=== PATIENT | female | born 1945 | race Asian ===

== ENCOUNTER 2020-12-04 13:48 | Outpatient (REF) | payer MEDICARE, SELFPAY ==
--- NOTE | ~2020-12-04 | MM_ITS ---
EXAMINATION: BONE DENSITOMETRY CLINICAL INDICATION: Screening for osteoporosis. COMPARISON: Previous BD dated 02/08/2015 and baseline BD dated 07/23/2005. TECHNIQUE: Using a [employer] DXA System (software version: 13.1) manufactured by [employer], dual-energy x-ray absorptiometry was performed of the lumbar spine and left hip. The images are of good technical quality. Summary results are attached. FINDINGS: AP SPINE L1-L4: Current: BMD 1.247 g/cm2, Z-score 2.6, T-score 0.6, normal, 0.7% increase from previous, 1.0% decrease from baseline (<5% change is not significant). Prior: BMD 1.238 g/cm2. Baseline: BMD 1.260 g/cm2. LEFT FEMUR, NECK: Current: BMD 0.941 g/cm2, Z-score 1.4, T-score -0.7, normal. Prior: BMD 0.932 g/cm2. Baseline: BMD 0.880 g/cm2. LEFT FEMUR, TOTAL: Current: BMD 0.971 g/cm2, Z-score 1.6, T-score -0.3, normal, 0.1% decrease from previous, 1.7% decrease from baseline (<5% change is not significant). Prior: BMD 0.972 g/cm2. Baseline: BMD 0.988 g/cm2. IDENTIFIED RISK FACTORS: Menopause. HISTORY OF FRACTURE: None listed. MEDICATIONS: Calcium supplements or multivitamin, vitamin D. MM/XR DEXA axial skeleton IMPRESSION: 1. DIAGNOSIS: Normal bone density based on the lowest T-score value of -0.7 in the femoral neck applying World Health Organization criteria. 2. 10-YEAR FRACTURE RISK PREDICTION, FRAX: According to the guidelines, FRAX calculation should only be performed on patients in the osteopenia bone density category. Therefore, FRAX was not performed on this patient. 3. Treatment Recommendations: NOF guidelines recommend consideration for treatment in postmenopausal women and men age 50 and older presenting with the following: -A hip or vertebral (clinical or morphometric) fracture. -T-score less than or equal to -2.5 at the femoral neck or spine after appropriate evaluation to exclude secondary causes. -Low bone mass at the hip or spine and a 10-year fracture probability by FRAX of greater than or equal to 3% for hip fracture or greater than or equal to 20% for major osteoporotic fracture based on the [place] adapted WHO algorithm. 4. Other Recommendations: All treatment decisions require clinical judgment and consideration of individual patient factors, including patient preferences, comorbidities, previous drug use, risk factors not captured in the FRAX model (e.g. frailty, falls, vitamin D deficiency, increased bone turnover, interval significant decline in bone density) and possible under or overestimation of fracture risk by FRAX. FUTURE SCAN RECOMMENDATION: People with diagnosed cases of osteoporosis or at high risk for fracture should have regular bone mineral density tests. For patients eligible for Medicare, routine testing is allowed once every 2 years. The testing frequency can be increased to one year for patients who have rapidly progressing disease, those who are receiving or discontinuing medical therapy to restore bone mass, or have additional risk factors.
--- NOTE | ~2020-12-04 | MM_ITS ---
EXAMINATION: MM SCREENING DIGITAL BREAST TOMOSYNTHESIS, BILATERAL CLINICAL INFORMATION: Screening. Asymptomatic. The lifetime risk of breast cancer based on the Tyrer-Cuzick Model is 2.9%. COMPARISON: Mammography: October 26, 2018 and studies dating back to April 03, 2010 TECHNIQUE: Digital breast tomosynthesis is performed in both the craniocaudal and mediolateral oblique views along with computer-aided detection (CAD). Synthesized 2D images are generated from the tomosynthesis. FINDINGS: The breasts are extremely dense, which lowers the sensitivity of mammography (ACR BI-RADS breast composition Category d). There are no significant masses, abnormal calcifications, or other abnormalities. MM/MM tomosynthesis screening BI IMPRESSION: There are no significant changes from prior study. ASSESSMENT: BI-RADS 1: Negative RECOMMENDATION: Routine annual mammography screening. This patient's information was entered into a reminder system with a target due date for their next mammogram.
== END 2020-12-04 13:49 | disposition home or self-care (01) ==
LOC: HO.MAMMO 13:48
PROVIDERS: Absent Provider Obstetrics & Gynecology; Visit Provider Internal Medicine
DX: Z13.820 Encounter for screening for osteoporosis (principal); Z78.0 Asymptomatic menopausal state; Z12.31 Encounter for screening mammogram for malignant neoplasm of breast
CPT/HCPCS: 77063; 77067; 77080

== ENCOUNTER 2022-05-26 14:22 | Outpatient (REF) | payer MEDICARE, SELFPAY ==
--- NOTE | ~2022-05-26 | MM_ITS ---
EXAMINATION: MM DIAGNOSTIC DIGITAL BREAST TOMOSYNTHESIS, BILATERAL US DIAGNOSTIC ULTRASOUND BREAST, RIGHT CLINICAL INFORMATION: Pea-sized superficial area noted by patient lateral right breast. Due for yearly. The lifetime risk of breast cancer based on the Tyrer-Cuzick Model is 3%. COMPARISON: Mammography: 12/04/2020, 10/26/2018, 09/06/2017 TECHNIQUE: Digital breast tomosynthesis is performed in both the craniocaudal and mediolateral oblique views along with computer-aided detection (CAD). Synthesized 2D images are generated from the tomosynthesis. Additional exaggerated right CC view is obtained. Ultrasound right breast is targeted to the area of clinical concern using grayscale imaging and color Doppler without and with harmonics. Patient is able to point to area of concern at time of imaging. FINDINGS: There are scattered areas of fibroglandular density (ACR BI-RADS breast composition Category b). Breast tissue composition borders on heterogeneously dense. There are no significant masses, abnormal calcifications, or other abnormalities. There is no mammographic correlate for the area of symptoms noted by patient. No skin thickening or coarsening of the Zeke's ligaments. No identifiable capsule around a lipoma. The axilla are unremarkable. Ultrasound demonstrates no cystic or solid mass or architectural abnormality. There is incidental small oval fat lobule near site of clinical concern 8 x 4 mm. No skin thickening or edema tracking in soft tissue planes. No abnormal color flow. Results are discussed with the patient at time of visit. MM/MM tomosynthesis diagnostic BI IMPRESSION: Right: -No mammographic correlate for clinical palpable concern. -Small incidental fat lobule near area of palpable concern on ultrasound. No suspicious finding. Left: -No mammographic evidence of malignancy. ASSESSMENT: BI-RADS 2: Benign RECOMMENDATION: 1. If there is still clinically palpable concern, further evaluation may be considered with surgical consult. Decision to proceed with biopsy should be based on clinical grounds and degree of clinical concern. 2. Otherwise, routine annual screening mammography. This patient's information was entered into a reminder system with a target due date for their next mammogram.
== END 2022-05-26 14:23 | disposition home or self-care (01) ==
LOC: HO.MAMMO 14:22
PROVIDERS: PCP Internal Medicine; Visit Provider Internal Medicine
DX: N63.15 Unspecified lump in the right breast, overlapping quadrants (principal)
CPT/HCPCS: 76642; 77062; 77066

== ENCOUNTER 2023-06-08 12:51 | Outpatient (REF) | payer MEDICARE, SELFPAY ==
--- NOTE | ~2023-06-08 | MM_ITS ---
EXAMINATION: MM DIAGNOSTIC DIGITAL BREAST TOMOSYNTHESIS, BILATERAL US BREAST LIMITED, RIGHT MAMMOGRAPHY: CLINICAL INFORMATION: Palpable focus of concern noted upper outer quadrant of right breast. 78-year-old female. COMPARISON: Mammography: 05/26/2022, 12/04/2020, 10/26/2018, 09/06/2017 TECHNIQUE: Digital breast tomosynthesis is performed in both the craniocaudal and mediolateral oblique views along with computer-aided detection (CAD). Synthesized 2D images are generated from the tomosynthesis. FINDINGS: The breasts are heterogeneously dense, which may obscure small masses (ACR BI-RADS breast composition Category c). Palpable focus of abnormality right breast 9:00 axis, 10 cm from the nipple, demonstrates no abnormal mass, architectural distortion, or abnormal calcifications near are subjacent to the marker. There are no suspicious masses, suspicious grouped calcifications, or areas of architectural distortion in either breast. The parenchymal pattern is stable from prior exams. ULTRASOUND: CLINICAL INFORMATION: Palpable focus of concern noted upper outer quadrant of right breast. 78-year-old female. COMPARISON: 05/26/2022. TECHNIQUE: Targeted sonographic evaluation was performed using a high frequency linear transducer. Attention was given to the 9:00 axis of the right breast, covering the area of concern. Selected archived documentation. FINDINGS: RIGHT BREAST: There is a mixture of fatty and fibroglandular tissue. No suspicious mass is seen. There is no pathologic acoustic shadowing. Once again, there is a simple lipoma/lipomatous nodule measuring 0.9 x 0.5 x 1.1 cm, unchanged from 05/26/2022. Once again this appears to account for the palpable focus of concern. MM/MM tomosynthesis diagnostic BI IMPRESSION: There are no significant changes from prior study. No findings suspicious for malignancy in either breast. Palpable focus of concern appears to be related to the same circumscribed lipomatous nodule/lipoma previously described measuring up to 1.1 cm at the 9:00 axis of the right breast 05/26/2022. Recommend the patient return to routine screening. OVERALL ASSESSMENT: Mammography: BI-RADS 2 - Benign Findings Ultrasound: BI-RADS 2 - Benign Findings RECOMMENDATION: 1 year F/U This patient's information was entered into a reminder system with a target due date for their next mammogram.
== END 2023-06-08 12:52 | disposition home or self-care (01) ==
LOC: HO.MAMMO 12:51
PROVIDERS: PCP Internal Medicine; Visit Provider Internal Medicine
DX: N63.15 Unspecified lump in the right breast, overlapping quadrants (principal)
CPT/HCPCS: 76642; 77062; 77066

== ENCOUNTER → 2023-06-08 13:00 | Outpatient (BNV) | payer MEDICARE, SELFPAY | PROVIDERS: PCP Internal Medicine; Visit Provider Radiology Diagnostic Radiology | DX: N63.11 Unspecified lump in the right breast, upper outer quadrant (principal) | CPT/HCPCS: 76642; 77062; 77066 ==

== ENCOUNTER 2024-07-05 09:59 | Outpatient (REF) | payer MEDICARE, SELFPAY ==
--- NOTE | ~2024-07-05 | XR_ITS ---
EXAMINATION: XR CHEST 2 VIEWS HISTORY: COUGH, PERSISTENT COMPARISON: There are no prior studies for comparison. FINDINGS: PA and lateral views of the chest are submitted. The lungs are expanded and clear. There is no pleural effusion, pneumothorax, or pulmonary vascular congestion. The heart is normal in size. There is mild degenerative disc disease of the spine. XR/XR chest 2V IMPRESSION: Clear lungs. Electronically signed by: Teo Da Silva MD 07/05/2024 11:13 AM MEDINA
--- OUTSIDE RECORDS SUMMARY | 2024-07-05 10:18 | XMS_ITS ---
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 Generated for Printi ng/Janisg/eTransmitting on:?07/05/2024 10:18 AM EST
--- OUTSIDE RECORDS SUMMARY | 2024-07-05 10:18 | XMS_ITS ---
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 Generated for Printi sumeet/Tierra/eTransmitting on:?07/05/2024 10:18 AM EST
--- OUTSIDE RECORDS SUMMARY | 2024-07-05 10:18 | XMS_ITS ---
Author Organization [facility] isael [place] Address [address] [place] [address] Care Team Providers Care Legal Arbitrator Name Role Phone Greg Horton MD Primary Care Provider Viktoria Lozano Unavailable [phone] Allergies Allergen (clinical drug ingredient) Drug/Non Drug Allergy documented on EMR Reaction Allergy Type Onset Date Status ibuprofen Advil stomach upset Drug Allergy Act estevan Aleve stomach upset Drug Allergy Act estevan Motrin stomach upset Drug Allergy Act estevan REASON FOR VISIT Last PCP visit 11/2023, Painful Toe(s) Medications Medication SIG (Take, Route, Fr equency, Duration) Notes Start Date End Date Status Atenolol 25 MG 1 tablet Orally Once a day for 30 day(s) Not-Taking amLODIPine Besylate Active Social History Tobacco Use: Social History Observation Description Date Details (start date - stop date) Never Smoker NA - NA Tobacco Use/Smoking Question Answer Notes Are you a: nonsmoker Additional Findings: Tobacco Non-User Aggressive non-smoker Alcohol Screen Question Answer Notes Did you have a drink containing alcohol in the p ast year? Yes Points 0 Interpretation Negative Tobacco use other than smoking: Question Answer Notes Are you an other tobacco user? 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) Active confirmed Vital Signs Height 5 ft 3 in in 04/28/2024 Weight 125 lbs 04/28/2024 BMI 22.14 kg/m2 04/28/2024 Encounters Encounter Location Date Provider Diagnosis [facility] [place] [address] [place] [address] 04/28/2024 Viktoria Galicia Pain in left toe(s) M79.675 ; Other hammer toe(s) (acquired), left foot M20.42 ; Arthritis of joint of lesser toe, left M19.072 ; Neuritis of left foot G57.92 and Accessory navicular bone of right foot Q74.2 Assessments Encounter Date Diagnosis (ICD Code) Assessment Notes Treatment Notes Treatment Clinical Notes Section Notes 04/28/2024 Pain in left toe(s) (ICD-10 - M79.675) 04/28/2024 Other hammer toe(s) (acquired), left foot (ICD-10 - M20.42) 04/28/2024 Arthritis of joint of lesser toe, left (ICD-10 - M19.072) 04/28/2024 Neuritis of left foot (ICD-10 - G57.92) 04/28/2024 Accessory navicular bone of right foot (ICD-10 - Q74.2) Plan Of Treatment Pending Test Test Name Order Date X ray : Foot, left 3V 04/28/2024 X ray : Foot, right 3V 04/28/2024 Next Appt Details Follow Up: prn, Reason: Progress Notes * Dora IRENE RDOB:1945 ( 79 yo F)Acc No.[id number]:04/28/2024 Progress Notes Patient:?Dora Irene R Provider:?Viktoria Galicia DPM :1945???Age:79 Y???Sex:Female D ate:04/28/2024 Address:[address] [place] [address] Pcp:Greg Horton MD Subjective: * Chief Complaints: * ???Last PCP visit 6/2024Pain ful Toe(s) * HPI: ???Toe pain:?Nature:?tenderness , numbness.?Location:?Left foot , 3rd toe , Tip.?Course:?intermittent.?Aggravated by:?barefoot walking.?Treatments:?rest/alter normal daily activity, change in shoes , bracing/splinting/padding.?Foot Pain:?Nature:?swelling.?Location:?Inside , Midfoot , RIGHT.?Course:?intermittent.? * ROS:?General/Constitutional:?Nausea?denies.?Vomiting?denies.?Hunger Thirst?denies.?Loss appetite?denies.?Chills?denies.?Fatigue?denies.?Fever?denies.?Night Sweats?denies.?Unexplained weight loss?denies.?Unexplained weight gain?denies.?HEENTM:?Dentures?denies.?Dizziness?denies.?Glasses/contacts?admits.?Retinopathy?de nies.?Blurred/double vision?denies.?TMJ?denies.?Discharge/drainage?denies.?Implants?denies.?Sore throat?denies.?Dental implants?denies.?Hard of hearing ?denies.?Difficulty chewing/swallowing/speaking?denies.?Nose bleeds?denies.?Sore mouth?denies.?Respiratory:?On Oxygen?denies.?Pneumonia/pleurisy?denies.?Bronchitis?denies.?Emphysema?denies.?C oughing?denies.?Cough blood?denies.?Shortness of breath?denies.?Wheezing?denies.?Cardiovascular:?Pacemaker?denies.?MVP?denies.?WPW?denies.?CHF?denies.?Heart attack?denies.?Septal defect?denies.?Rapid beat?denies.?Chest pain ?denies.?Atrial Fib.?denies.?Murmur/Palpitations?denies.?Gastrointestinal:?Hemorrhoids?denies.?Stomach/Abdominal pain?denies.?Dark blood stool?denies.?Irritable bowel ?denies.?Constipation?denies.?Diarrhea?denies.?Hematology:?Swelling?denies.?Clots?denies.?Varicose Veins?denies.?Bruising?denies.?Bleeding problem?denies.?Genitourinary:?Blood urine?denies.?Frequent/Painfu/urination/bladder control?denies.?Kidney stones?denies.?Infection (UTI)?denies.?Nephropathy?denies.?sex trans dis (STD)?denies.?Prostate?denies.?Musculoskeletal:?Hammertoes?denies.?Bunions?denies.?Back Pain?denies.?Muscle Cramps/ Resting?denies.?Muscle cramps / walking?denies.?Generalized aches and pains?denies.?Weakness?denies.?Integ.:?Arreguin?denies.?Scars?denies.?Corns/calluses?admits.?Ingrown nails?denies.?Painful nails?denies.?Open Sores?denies.?Rashes?denies.?Neurologic:?Difficulty sleeping?denies.?Brain disorder?denies.?Numbness?denies.?Balance trouble?denies.?Confusion?denies.?Fainting/blackouts?denies.?Tingling?denies.?Tr emors?denies.? * Medical History:? * Surgical History:?No Surgica l History documented. * Hospitalization/Major Diagno stic Procedure:?No Hospitalization History. * Family History:?Mother: dece ased, diagnosed with Unspecified essential hypertension.?Father: .?Siblings: diagnosed with Other malignant neoplasm of unspecified site.? * Social History:?Tobacco Use:?Tobacco Use/Smoking?Are you a:?nonsmoker ?Additional Findings: Tobacco Non-User?Aggressive non-smoker ?Tobacco use other than smoking?Are you an other tobacco user??No ???Drugs/Alcohol:?Drugs?Have you used drugs other than those for medical reasons in the past 12 months??No ?Alcohol Screen?Did you have a drink containing alcohol in the past year??Yes ?Points?0 ?Interpretation?Negative ???Miscellaneous:?Caffeine: yes, frequency:, 2-3 cups per day. ?Children: yes, 2. ?Exercise: yes, walking,streching. ?Marital status: . * Medications:?TakingamLODIPin e Besylate Taking amLODIPine Besylate Not-Taking/PRNAtenolol 25 MG Tablet 1 tablet Orally Once a dayMedication List reviewed and reconciled with the patientNot-Taking/PRN Atenolol 25 MG Tablet 1 tablet Orally Once a dayMedication List reviewed and reconciled with the patient * Allergies:?Advil: stomach up setAleve: stomach upsetMotrin: stomach upsetyes[Allergies Verified] Objective: * Vitals:?Ht: 5 ft 3 in, Wt: 1 25, BMI: 22.14, Shoe size: 8, Ht-cm: 160.02 cm, Wt- k.7 kg. * Examination: ???Orthopedic: ?MUSCLE STRENGTH:?5/5 all groups in a symmetrical fashion, B/L.?DIGITAL DEFORMITIES:?Digital contracture, PIPJ, 2-5 B/L, reducible with WB, or to push-up test, no over, nor underlapping , Digital contracture , DIPJ , incompl-reducible with WB or to push-up test , T2.?FOOTWEAR:? shoe gear properties exacerbate patients foot/toe deformity.?Right pain on palpation navicular tuberosity. ???X-Rays - IMAGING REPORT: ?Clinical Indication(s):? Evaluate Biomechanical Deformity.?Views:? 3 views of Foot, AP, LO, MO, Right; , AP, LAT, LO, LEFT.?Findings:? normal bone and soft tissue density consistent for patients age and sex.?Digits:? show asymmetrical joint space narrowing at the PIPJ consistent with clinical finding of hammertoe deformity.?Fracture:? Negative fractures identified.?Accessory ossicles:?Right , Os Tibiale Externum.?General Examination: ?GENERAL APPEARANCE:?Reveals a pleasant, alert, well nourished, well- developed, well hydrated individual, who demonstrates proper attention to hygiene/body habitus, and is in no acute distress, Pt serves as own historian for office visit today.?ORIENTED:?person, place, and time.?Vascular: ?DP PULSES(B):?3/4, B/L.?PT PULSES(B):?3/4, B/L.?CAPILLARY FILL TIME:?immediate, all digits, B/L.?TROPHIC CONDITION-TEXTURE/ELASTICITY/TURGOR/HAIR GROWTH(B):?normal, B/L.?TEMPERTURE GRADIENT(C):?normal, warm to cool, proximal to distal, B/L, B/L.?PIGMENTATION:?normal, B/L.?Neurological: ?SENSORY:?Neurological exam reveals intact sensorium, pain sensation normal, vibration sensation intact, pinprick sensation is normal in the lower extremities , Pt relates , numbness on occasion to tip of left 3rd toe.?Dermatologic: ?SKIN FINDINGS:?Skin exam reveals normal color, texture, elasticity, and turgor. There are no masses, nor excrescences. The interspaces are clear, B/L.? Assessment: * Assessment: 1.?Pain in left toe(s) - M79 .675 (Primary)?2.?Other hammer toe(s) (acquired), left foot - M20.42?3.?Arthritis of joint of lesser toe, left - M19.072?4.?Neuritis of left foot - G57.92?5.?Accessory navicular bone of right foot - Q74.2? Plan: * Treatment: 2.?Accessory navicular bone of right foot?Imaging: X ray : Foot, right 3V * Procedure Codes:?92288 X-RAY EXAM OF LEFT FOOT 3V, Modifiers: 26 , [id number] X-RAY EXAM OF RIGHT FOOT 3V, Modifiers: 26 , RT * Preventive Medicine:? ??Counseling:?Discussion:?-04: Office or other outpatient visit for the evaluation and management of a new patient, which required a medically appropriate history and/or examination and MODERATE level of DECISION MAKING for: 1 OR MORE CHRONIC PROBLEM(S) THATS WORSENING, 2 STABLE CHRONIC PROBLEMS, A NEWLY DIAGNOSED PROBLEM WITH UNCERTAIN PROGNOSIS, AN ACUTE COMPLICATED INJURY WITH MULTIPLE TREATMENT OPTIONS, OR AN ACUTE PROBLEM WITH ACCOMPANYING SYSTEMIC SYMPTOMS, THAT POSE(S) A MODERATE RISK OF MORBIDITY. THIS CONDITION MAY ALSO INCLUDE RX DRUG MANAGEMENT, OR A DECISON FOR MINOR SURGERY. The visit on the day of the encounter encompassed interpreting the data and educating the patient as to the nature of their condition, treatment options available according to their individual PMH, meds, allergies, and overall health/living conditions, as well as any potential risks or complications that may occur from a failure to adhere to, and participate in, the recommended course of therapy. The discussion included a complete verbal, and/or written explanation of the examination results, any x-rays taken, the proposed diagnosis, and outline of the treatment plan. A schedule for future care needs was also explained. The patient verbalized an understanding of the instructions at this time and agreed to be an active participant in their treatment. If the patient should think of any questions or concerns after the visit, I have encouraged the patient to call the office.?BioMech.:?I discussed the Pts foot biomechanics with them and how it relates to their problem.?Digital Treatment:?I explained to the patient the possible etiologies of Hammertoes, including genetics/foot type/shoegear/activity level/exercise routine and the risks/benefits of all the different treatment options for their pain including: No treatment at all, Rest, Ice, New/supportive/wider/deeper Shoegear, Digital Padding/Strapping/Taping/Bracing/Gel protective sleeves, Foot/Ankle AFO Bracing, Stretching exercises, Deep Tissue Massage, Arch support/shoe inserts with splay metatarsal padding, and Custom orthoses. I insisted that any digital devices be removed daily and not worn overnight for safety. The patient is to carefully examine the toes daily for any skin irritation while using any splinting or padding device. The advantages and disadvantages of each option were discussed and the patients questions re: shoegear, padding, custom vs prefabricated inserts, activity level, and consistency in home treatment regimens for optimal success were answered to their verbally confirmed satisfaction.?Shoe Gear Counseling:?The patient and I reviewed the types of shoes they should be wearing. My recommendation included obtaining a well-fitted shoe with a good supportive, non-foldable nor twistable sole, plenty of toe/room for the forefoot, and proper arch support. Based on todays examination, I recommended the patient look for new shoes, by having their feet professionally measured. We discussed that generally the best time of the day for a shoe fitting is the afternoon. Different shoes types and brands to best match the patients occupation and vocation were discussed. Specific brand selection will be up to the patient, their individual foot condition/deformities, and fit. The patient and I reviewed the standard new shoe break in period by wearing them for a few hours a day while checking for redness or sores as wear time is increased. The patient verbally confirmed to understanding the information discussed.?X-rays:?Discussed and reviewed the X-rays with the patient. We discussed how the findings relate to the patients symptoms/complaints. Answered any and all questions..? * Follow Up:?prn * Images: * Sign off status: Completed true * Provider:?JASON SchmidtM Date:?06/2023 Generated for Printi ng/Janisg/eTransmitting on:?07/05/2024 10:18 AM EST History and Physical Notes * HPI (History of Present Illness) Category Sub-Category Detail Notes Category Not es Toe pain Nature: tenderness , numbness Location: Left foot , 3rd toe , Tip Course: intermittent Aggravated by: barefoot walking Treatments: rest/alter normal da annette activity, change in shoes , bracing/splinting/padding Foot Pain Nature: swelling Location: Inside , Midfoot , R IGHT Course: intermittent Examination Category Sub-Category Detail Notes Category Not es Neurological SENSORY: Neurological exa m reveals intact sensorium, pain sensation normal, vibration sensation intact, pinprick sensation is normal in the lower extremities , Pt relates , numbness on occasion to tip of left 3rd toe Dermatologic SKIN FINDINGS: Skin exam reveal s normal color, texture, elasticity, and turgor. There are no masses, nor excrescences. The interspaces are clear, B/L Orthopedic FOOTWEAR: shoe gear proper ties exacerbate patients foot/toe deformity Right pain on palpation navicular tuberosity DIGITAL DEFORMITIES: Digital contracture , PIPJ, 2-5 B/L, reducible with WB, or to push-up test, no over, nor underlapping , Digital contracture , DIPJ , incompl-reducible with WB or to push-up test , T2 MUSCLE STRENGTH: 5/5 all groups in a symmetrical fashion, B/L General Examination GENERAL APPEARANCE: Reveals a pleasant, alert, well nourished, well-developed, well hydrated individual, who demonstrates proper attention to hygiene/body habitus, and is in no acute distress, Pt serves as own historian for office visit today ORIENTED: person, place, and t cassie Vascular DP PULSES (B): 3/4, B/L PT PULSES (B): 3/4, B/L CAPILLARY FILL TIME: immediate, all digi ts, B/L TEMPERTURE GRADIENT (C): normal, warm to cool, proximal to distal, B/L, B/L TROPHIC CONDITION-TEXTURE/ELASTICITY/TURGOR/HAIR GROWTH (B): normal, B/L PIGMENTATION: normal, B/L X-Rays - IMAGING REPORT Findings: normal b one and soft tissue density consistent for patients age and sex Fracture: Negative fractures i dentified Accessory ossicles: Right , Os Tibiale E xternum Digits: show asymmetrical iggy int space narrowing at the PIPJ consistent with clinical finding of hammertoe deformity Views: 3 views of Foot, AP, LO, MO, Right; , AP, LAT, LO, LEFT Clinical Indication(s): Evaluate Biomech anical Deformity
--- OUTSIDE RECORDS SUMMARY | 2024-07-05 10:19 | XMS_ITS | Patient Health Record ---
[facility] Organization [facility] isael [place] Address [address] [place] [address] Care Team Providers Care Print Production Manager Name Role Phone Greg Horton MD Primary Care Provider Viktoria Lozano Unavailable [phone] Allergies Allergen (clinical drug ingredient) Drug/Non Drug Allergy documented on EMR Reaction Allergy Type Onset Date Status ibuprofen Advil stomach upset Drug Allergy Act estevan Aleve stomach upset Drug Allergy Act estevan Motrin stomach upset Drug Allergy Act estevan Reason For Referral No Information Medications Medication SIG (Take, Route, Fr equency, [...] Status W/U Status Risk Notes Problem Acquired hallux valgus (81829333) Hallux valgus (acquired), left foot (M20.12) Active confirmed Problem Localized, primary osteoarthritis of the ankle and/or foot (044253608) Primary osteoarthriti s, left ankle and foot (M19.072) Active confirmed Problem Acquired hallux valgus (84568019) Hallux valgus (acquired), right foot (M20.11) Active confirmed Problem Acquired hammer toe of left foot (2972951264072154) Other hammer toe(s) (acquired), left foot (M20.42) Active confirmed Problem 059928090433473 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) Active confirmed Problem 17451270293063748 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) Active confirmed Problem Localized, primary osteoarthritis of the ankle and/or foot (093110359) Arthritis of joint of lesser toe, left (M19.072) Active confirmed Vital Signs Height 5 ft 3 in in 04/28/2024 Weight 125 lbs 04/28/2024 BMI 22.14 kg/m2 04/28/2024 Encounters Encounter [facility] Date [facility] [address] 04/28/2024 Viktoria Galicia Pain in left toe(s) M79.675 ; Other hammer toe(s) (acquired), left foot M20.42 ; Arthritis of joint of lesser toe, left M19.072 ; Neuritis of left foot G57.92 and Accessory navicular bone of right foot Q74.[address] [facility] [address] [facility] [address] 02/29/2024 Viktoria Galicia [address] [address] 03/01/2024 Viktoria Galicia [address] [address] 04/28/2024 Viktoria Galicia Assessments Encounter Date Diagnosis (ICD Code) Assessment [...] Date X ray : Foot, left 3V 06/03/2020 X ray : Foot, left 3V 04/28/2024 X ray : Foot, right 3V 04/28/2024 Insurance Providers Payer Name Payer Address Payer Phone Subscriber Number Group Number Insured Name Patient Relationship to Insured Coverage Start Date Coverage End Date [employer]age [address] [place] [address] [id number] Dora Arambula Self - patient is the insured Medical (General) History Medical History History ICD Code Arthritis High blood pressure Psoriasis/eczema Chicken pox Surgical History Surgery Date(Month/Year)
== END 2024-07-05 10:00 | disposition home or self-care (01) ==
LOC: HO.XRAY 09:59
PROVIDERS: PCP Internal Medicine; Visit Provider Internal Medicine
DX: R05.3 Chronic cough (principal)
CPT/HCPCS: 71046

== ENCOUNTER → 2024-07-05 10:07 | Outpatient (BNV) | payer MEDICARE, SELFPAY | PROVIDERS: PCP Internal Medicine; Visit Provider Radiology Diagnostic Radiology | DX: R05.9 Cough, unspecified (principal) | CPT/HCPCS: 71046 ==

== ENCOUNTER 2024-07-11 13:15 | Outpatient (REF) | payer MEDICARE, SELFPAY ==
--- OUTSIDE RECORDS SUMMARY | 2024-07-11 15:29 | XMS_ITS ---
Author Organization [facility] Address [address] [place] [address] Care Team Providers Care Stone Planer Name Role Phone Greg Horton MD Primary Care Provider Viktoria Lozano [phone] REASON FOR VISIT BUY Budin Splint one strap Encounters Encounter Location Date Provider Diagnosis [facility] [address] [place] [address] 03/01/2024 Viktoria Galicia Plan Of Treatment No Information Progress Notes * Dora IRENE RDOB:1945 ( 78 yo F)Acc No.[id number]:03/01/2024 Patient:?Dora Irene :1945???Age:78 Y???Sex:Female Address:[address] [place] [address] * true * Date:? Generated for Printi ng/Janisg/eTransmitting on:?07/11/2024 03:28 PM EST
--- OUTSIDE RECORDS SUMMARY | 2024-07-11 15:29 | XMS_ITS ---
Author Organization [facility] isael [place] Address [address] [place] [address] Care Team Providers Care Speech Correction Consultant Name Role Phone Greg Horton MD Primary Care Provider Viktoria Lozano Unavailable [phone] Allergies Allergen (clinical drug ingredient) Drug/Non Drug [...] Problem Acquired hammer toe of left foot (2575885582555006) Other hammer toe(s) (acquired), left foot (M20.42) Active confirmed Problem Localized, primary osteoarthritis of the ankle and/or foot (603698838) Arthritis of joint of lesser toe, left (M19.072) Active confirmed Problem 893513233222999 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) Active confirmed Problem 60034407085114010 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) Active confirmed Vital Signs Height 5 ft 3 in in 04/28/2024 Weight 125 lbs 04/28/2024 BMI 22.14 kg/m2 04/28/2024 Encounters Encounter Location Date Provider Diagnosis [facility] [place] [address] [place] [address] 04/28/2024 Viktoria Galicia Pain in left toe(s) [...] Dora IRENE RDOB:1945 ( 79 yo F)Acc No.[id number]:04/28/2024 Progress Notes Patient:?Dora Irene R Provider:?Viktoria Galicia DPM :1945???Age:79 Y???Sex:Female D ate:04/28/2024 Address:[address] [place] [address] Pcp:Greg Horton MD Subjective: * Chief Complaints: [...] ray : Foot, right 3V * Procedure Codes:?03232 X-RAY EXAM OF LEFT FOOT 3V, Modifiers: 26 , [id number] X-RAY EXAM OF RIGHT FOOT 3V, Modifiers: [...] * Sign off status: Completed true * Provider:?Viktoria Galicia, AJSONM Date:?06/2023 Generated for Printi ng/Janisg/eTransmitting on:?07/11/2024 03:28 PM EST History and Physical Notes * HPI [...]
--- OUTSIDE RECORDS SUMMARY | 2024-07-11 15:29 | XMS_ITS ---
Author Organization [facility] Address [address] [place] [address] Care Team Providers Care Cribbing Setter Name Role Phone Greg Horton MD Primary Care Provider Viktoria Lozano [phone] Briseida guerrero of foot pads Encounters Encounter Location Date Provider Diagnosis [facility] [address] [place] [address] 04/28/2024 Viktoria Galicia Plan Of Treatment No Information Progress Notes * Dora IREEN RDOB:1945 ( 79 yo F)Acc No.[id number]:04/28/2024 Patient:?Dora Irene :1945???Age:79 Y???Sex:Female Address:[address] [place] [address] * true * Date:? Generated for Printi sumeet/Tierra/eTransmitting on:?07/11/2024 03:28 PM EST
--- OUTSIDE RECORDS SUMMARY | 2024-07-11 15:29 | XMS_ITS | Patient Health Record ---
[facility] Address [address] [place] [address] Care Team Providers Care Fish Farmer Name Role Phone Greg Horton MD Primary Care Provider Viktoria Lozano Unavailable [phone] Allergies Allergen (clinical drug ingredient) Drug/Non Drug [...] Status Risk Notes Problem Acquired hallux valgus (37771371) Hallux valgus (acquired), left foot (M20.12) Active confirmed Problem Localized, primary osteoarthritis of the ankle and/or foot (956817192) Primary osteoarthriti s, left ankle and foot (M19.072) Active confirmed Problem Acquired hallux valgus (94022313) Hallux valgus (acquired), right foot (M20.11) Active confirmed Problem Acquired hammer toe of left foot (2869736103499500) Other hammer toe(s) (acquired), left foot (M20.42) Active confirmed Problem 489565968629686 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) Active confirmed Problem 78852156038035775 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) Active confirmed Problem Localized, primary osteoarthritis of the ankle and/or foot (679549397) Arthritis of joint of lesser toe, left (M19.072) Active confirmed Vital Signs Height 5 ft 3 in in 04/28/2024 Weight 125 lbs 04/28/2024 BMI 22.14 kg/m2 04/28/2024 Encounters Encounter Location Date [facility] [address] 04/28/2024 Viktoria Galicia Pain in left toe(s) M79.675 ; Other hammer toe(s) (acquired), left foot M20.42 ; Arthritis of joint of lesser toe, left M19.072 ; Neuritis of left foot G57.92 and Accessory navicular bone of right foot Q74.[address] [facility] [address] [facility] [address] 02/29/2024 Viktoria Galicia [address] [address] 03/01/2024 Viktoria Galicia [address] [address] 04/28/2024 Viktoria Galicia Assessments Encounter Date Diagnosis [...] [address] [place] [id number] Dora Arambula Self - patient is the insured Medical (General) History Medical History History ICD Code Arthritis High blood pressure Psoriasis/eczema Chicken pox Surgical History Surgery Date(Month/Year)
== END 2024-07-11 13:16 | disposition home or self-care (01) ==
LOC: HO.MAMMO 13:15
PROVIDERS: PCP Internal Medicine; Visit Provider Internal Medicine
DX: Z12.31 Encounter for screening mammogram for malignant neoplasm of breast (principal)
CPT/HCPCS: 77063; 77067

== ENCOUNTER → 2024-07-11 13:30 | Outpatient (BNV) | payer MEDICARE, SELFPAY | PROVIDERS: PCP Internal Medicine; Visit Provider Internal Medicine | DX: Z12.31 Encounter for screening mammogram for malignant neoplasm of breast (principal) | CPT/HCPCS: 77063; 77067 ==

== ENCOUNTER 2024-08-29 11:57 | Outpatient (REF) | payer MEDICARE, SELFPAY ==
--- NOTE | ~2024-08-29 | MM_ITS ---
EXAMINATION: MM DIAGNOSTIC DIGITAL BREAST TOMOSYNTHESIS, BILATERAL Bilateral Limited ultrasound. CLINICAL INFORMATION: Call back from screening for bilateral asymmetries. COMPARISON: Mammography: Comparison is made with relevant prior exams. TECHNIQUE: Digital breast mammography with tomosynthesis is performed in both the craniocaudal and mediolateral oblique views along with computer-aided detection (CAD). FINDINGS: The breasts are heterogeneously dense, which may obscure small masses (ACR BI-RADS breast composition Category c). Left: Asymmetry in the superior left breast middle depth partially effaces on additional imaging projections. No suspicious calcifications or other abnormal findings. Targeted color Doppler ultrasound scanning in the superior breast from 10-1 o'clock demonstrates normal fibroglandular breast tissue. There is no sonographic abnormality. Right: Asymmetry in the upper inner breast partially effaces on additional imaging projections. No suspicious calcifications or other abnormal findings. Targeted color Doppler ultrasound scanning in the superior breast from 10-1 o'clock demonstrates normal fibronodular breast tissue. There is no sonographic abnormality. Results are provided to the patient at time of visit by the technologist. MM/MM tomosynthesis added view BI IMPRESSION: Right: Focal asymmetry upper inner breast posterior depth without sonographic correlate. Recommend 6 month follow-up for further evaluation of stability. Left: Superior breast asymmetry on MLO view without sonographic correlate. Recommend 6 month follow-up for further evaluation of stability. ASSESSMENT: BI-RADS BI-RADS 3 - Probably benign finding(s) - 6 month follow-up suggested RECOMMENDATION: 6 Month F/U This patient's information was entered into a reminder system with a target due date for their next mammogram. Electronically signed by: Bri Islas DO 08/29/2024 01:08 PM [facility]
--- OUTSIDE RECORDS SUMMARY | 2024-08-29 15:06 | XMS_ITS ---
Author Organization [facility] Address [address] [place] [address] Care Team Providers Care Lamp Wirer Name Role Phone Greg Horton MD Primary Care Provider Viktoria Lozano [phone] Briseida guerrero of foot pads Encounters Encounter Location Date Provider Diagnosis [facility] [address] [place] [address] 04/28/2024 Viktoria Galicia Plan Of Treatment No Information Progress Notes * Dora IRENE RDOB:1945 ( 79 yo F)Acc No.[id number]:04/28/2024 Patient:?Dora Irene :1945???Age:79 Y???Sex:Female Address:[address] [place] [address] * true * Date:? Generated for Dagobertoi sumeet/Tierra/eTransmitting on:?08/29/2024 03:06 PM EST
--- OUTSIDE RECORDS SUMMARY | 2024-08-29 15:06 | XMS_ITS ---
Author Organization [facility] Address [address] [place] [address] Care Team Providers Care Merchandise Carrier Name Role Phone Greg Horton MD Primary Care Provider Viktoria Lozano [phone] REASON FOR VISIT BUY Budin Splint one strap Encounters Encounter Location Date Provider Diagnosis [facility] [address] [place] [address] 03/01/2024 Viktoria Galicia Plan Of Treatment No Information Progress Notes * Dora IRENE RDOB:1945 ( 78 yo F)Acc No.[id number]:03/01/2024 Patient:?Dora Irene :1945???Age:78 Y???Sex:Female Address:[address] [place] [address] * true * Date:? Generated for Printi ng/Tierra/eTransmitting on:?08/29/2024 03:06 PM EST
--- OUTSIDE RECORDS SUMMARY | 2024-08-29 15:07 | XMS_ITS | Patient Health Record ---
[facility] [place] Address [address] [place] [address] Care Team Providers Care Plasma Processing Centrifuge Operator Name Role Phone Greg Horton MD Primary Care Provider Viktoria Lozano Unavailable [phone] Allergies Allergen (clinical drug ingredient) Drug/Non Drug [...] Status Risk Notes Problem Acquired hallux valgus (46112807) Hallux valgus (acquired), left foot (M20.12) Active confirmed Problem Localized, primary osteoarthritis of the ankle and/or foot (321813534) Primary osteoarthriti s, left ankle and foot (M19.072) Active confirmed Problem Acquired hallux valgus (04579864) Hallux valgus (acquired), right foot (M20.11) Active confirmed Problem Acquired hammer toe of left foot (7016256806466893) Other hammer toe(s) (acquired), left foot (M20.42) Active confirmed Problem 835966968523648 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) Active confirmed Problem 16565836331196272 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) Active confirmed Problem Localized, primary osteoarthritis of the ankle and/or foot (085225986) Arthritis of joint of lesser toe, left (M19.072) Active confirmed Vital Signs Height 5 ft 3 in in 04/28/2024 Weight 125 lbs 04/28/2024 BMI 22.14 kg/m2 04/28/2024 Encounters Encounter Location Date [facility] [address] 04/28/2024 Viktoria Galicia Pain in left toe(s) M79.675 ; Other hammer toe(s) (acquired), left foot M20.42 ; Arthritis of joint of lesser toe, left M19.072 ; Neuritis of left foot G57.92 and Accessory navicular bone of right foot Q74.2 [facility] [address] [facility] [place] [facility] [address] 02/29/2024 Viktoria Galicia [address] [address] 03/01/2024 Viktoria Galicia [address] [address] 04/28/2024 Viktoria Galicia Assessments Encounter Date Diagnosis [...] Medicare Advantage [address] [place] [id number] Dora Arambula Self - patient is the insured Medical (General) History Medical History History ICD Code Arthritis High blood pressure Psoriasis/eczema Chicken pox Surgical History Surgery Date(Month/Year)
--- OUTSIDE RECORDS SUMMARY | 2024-08-29 15:07 | XMS_ITS ---
Author Organization [facility] isael [place] Address [address] [place] [address] Care Team Providers Care Manager Port Name Role Phone Greg Horton MD Primary Care Provider Viktoria Lozano Unavailable [phone] Allergies Allergen (clinical drug ingredient) Drug/Non Drug [...] Problem Acquired hammer toe of left foot (1812166714328975) Other hammer toe(s) (acquired), left foot (M20.42) Active confirmed Problem Localized, primary osteoarthritis of the ankle and/or foot (346532789) Arthritis of joint of lesser toe, left (M19.072) Active confirmed Problem 895211060998783 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) Active confirmed Problem 77413671649638024 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) Active confirmed Vital Signs Height 5 ft 3 in in 04/28/2024 Weight 125 lbs 04/28/2024 BMI 22.14 kg/m2 04/28/2024 Encounters Encounter Location Date Provider Diagnosis [facility] [address] [place] [address] 04/28/2024 Viktoria Galicia Pain in left toe(s) [...] Dora IRENE RDOB:1945 ( 79 yo F)Acc No.[id number]:04/28/2024 Progress Notes Patient:?Dora Irene R Provider:?Viktoria Galicia DPM :1945???Age:79 Y???Sex:Female D ate:04/28/2024 Address:[address] [place] [address] Pcp:Greg Horton MD Subjective: * Chief Complaints: [...] ray : Foot, right 3V * Procedure Codes:?71492 X-RAY EXAM OF LEFT FOOT 3V, Modifiers: 26 , RH00686 X-RAY EXAM OF RIGHT FOOT 3V, Modifiers: [...] * Provider:?JASON SchmidtM Date:?06/2023 Generated for Printi ng/Farachelg/eTransmitting on:?08/29/2024 03:06 PM EST History and Physical Notes * [...]
== END 2024-08-29 11:58 | disposition home or self-care (01) ==
LOC: HO.MAMMO 11:57
PROVIDERS: PCP Internal Medicine; Visit Provider Internal Medicine
DX: N64.89 Other specified disorders of breast (principal); R92.323 Mammographic fibroglandular density, bilateral breasts; R92.333 Mammographic heterogeneous density, bilateral breasts
CPT/HCPCS: 76642; 77062; 77066

== ENCOUNTER → 2024-08-29 12:00 | Outpatient (BNV) | payer MEDICARE, SELFPAY | PROVIDERS: PCP Internal Medicine; Visit Provider Internal Medicine | DX: R92.8 Other abnormal and inconclusive findings on diagnostic imaging of breast (principal) | CPT/HCPCS: 76642; 77066; G0279 ==

== ENCOUNTER 2025-03-01 10:55 | Outpatient (REF) | payer MEDICARE, SELFPAY ==
--- NOTE | ~2025-03-01 | MM_ITS ---
EXAMINATION: MM DIAGNOSTIC DIGITAL BREAST TOMOSYNTHESIS, BILATERAL CLINICAL INFORMATION: 6 month followup for bilateral asymmetries without sonographic correlates. COMPARISON: Mammography: Comparison is made with relevant prior exams. TECHNIQUE: Digital breast mammography with tomosynthesis is performed in both the craniocaudal and mediolateral oblique views along with computer-aided detection (CAD). FINDINGS: The breasts are heterogeneously dense, which may obscure small masses (ACR BI-RADS breast composition Category c). Right: Focal asymmetry upper inner breast posterior depth not significantly changed from prior. No prior sonographic correlate was seen. No suspicious calcifications or other abnormal findings. Left: Asymmetry superior breast middle to posterior depth on MLO view is less conspicuous compared with priors. No prior sonographic correlate was seen. No suspicious calcifications or other abnormal findings. Results are provided to the patient at time of visit by the technologist. MM/MM tomosynthesis diagnostic BI IMPRESSION: Bilateral asymmetries without prior sonographic correlate which is not significant change from prior. Recommend 6 month follow-up for further evaluation of stability. ASSESSMENT: BI-RADS BI-RADS 3 - Probably benign finding(s) - 6 month follow-up suggested RECOMMENDATION: 6 Month F/U This patient's information was entered into a reminder system with a target due date for their next mammogram. Electronically signed by: Bri Islas DO 03/01/2025 01:19 PM EDT
--- OUTSIDE RECORDS SUMMARY | 2025-03-01 12:31 | XMS_ITS | Clinical Summary ---
Author Organization [facility] Address [address] [place] [address] Phone Care Team Providers Care Corrections Counselor Name Role Phone Greg Horton MD Primary Care Provider [phone] Allergies No known active allergies Medications calcium carbonate-vitami n D3 1,500 mg (600 mg elemental)-200 units Tab Take 1 tablet by mouth 3 (three) times a week. Active hydrocortisone valerate 0.2 % cream PRN 1 Active cholecalciferol (VITAMIN D3) 25 MCG (1,000 unit) tablet Take 1,000 Units by mouth daily. Active mv-mn/folic ac/calcium/vit K1 (WOMEN'S 50 PLUS MULTIVITAMIN ORAL) Take 1 capsule by mouth daily. With vitamin D3 1000 units Active glucosam/chond/h yalu/CF borate (MOVE FREE JOINT HEALTH ORAL)Indications :Triple joint [employer]co brand Take 1 capsule by mouth daily. Indications: Triple joint [employer]co brand Active mometasone (ELOCON) 0.1 % ointment Apply 1 Application topically as needed. 4 Active amLODIPine (NORVASC) 5 MG tabletIndication s:Essential hypertension TAKE 1 TABLET BY MOUTH DAILY 90 tablet 3 5 Active fluticasone propionate (ALLERGY RELIEF, FLUTICASONE,) 50 mcg/actuation nasal spray 1 spray by Nasal route as needed for rhinitis. Active olopatadine HCl (PATADAY ONCE DAILY RELIEF OPHT) Apply 1 drop in each eye to eye daily as needed. Active Active Problems Problem Noted Date Diagnosed Date Constipation 10/14/2017 Nocturia 10/14/2017 Osteoarthritis 10/14/2017 Pure hypercholesterolemia 10/14/2017 Vitamin D deficiency 10/14/2017 HTN (hypertension) Hyperlipidemia Arthritis Allergic rhinitis Encounters Date Type Department Care Team Description 01/31/2025 Orders Only [facility] [address] [place] [address] ProviderSophie MD 01/30/2025 Episode Changes [facility] [address] [place] [address] 01/09/2025 9:18 AM EDT - 01/09/2025 11:59 PM EDT Hospital Encounter [facility] Laboratory [address] [place] [address] Greg Horton MD Discharge Disposition: Home or Self Care 01/09/2025 Telephone [facility] [address] [place] [address] Greg Horton MD Results 01/09/2025 Transcribe Orders [facility] Laboratory [address] [place] [address] Moni Silveira PA-C Colon cancer screening (Primary Dx) 01/09/2025 Orders Only [facility] [address] [place] [address] Moni Silveira PA-C Colon cancer screening (Primary Dx) 01/08/2025 9:57 AM EDT - 01/08/2025 11:59 PM EDT Hospital Encounter [facility] Laboratory [address] [place] [address] Moni Silveira PA-C Discharge Disposition: Home or Self Care 12/25/2024 3:00 PM EDT Office Visit [facility] [address] [place] [address] Greg Horton MD Routine general medical examination at a health care facility (Primary Dx); Benign essential hypertension; Pure hypercholesterolemia; Vitamin D deficiency; Primary osteoarthritis involving multiple joints; Primary insomnia; Vitamin D deficiency, unspecified; Impaired fasting glucose 12/20/2024 Documentation [facility] [address] [place] [address] Greg Horton MD 12/13/2024 Refill [facility] [address] [facility] [place] [address] Greg Horton MD Medication Refill from Last 3 Months Immunizations Immunization Administration Dates Next Due COVID-19 (Pre-04/19) Pfizer Vaccine, mRNA, PF 10/05/2020,09/12/2020 [id number] FORMULATION 06/28/2009 INFLUENZA, SPLIT VIRUS, TRIV ALENT W/ PRESERVATIVE IM 03/16/2014,03/18/2012 Influenza High-Dose Quadriva lent Preservative Free IM 03/29/2023,03/11/2022,03/17/2021 Influenza High-Dose Trivalen t Preservative Free IM 03/09/2024,04/05/2019,04/11/2018,03/13,04/16/2015,03/20/2013 Influenza Quadrivalent Adjuv anted Preservative Free IM 03/13/2020 Influenza, Unspecified Formulation 04/02/2009 Pneumococcal conjugate PCV13 03/08/2015 Pneumococcal polysaccharide PPSV23 10/26/2011 RSV Vaccine (monovalent, adjuvanted) 12/27/2023 Td (adult) 5 Lf Tetanus Toxo id, PF, Adsorbed 03/28/2005 Tdap 07/31/2014 Zoster live 12/02/2011 Zoster recombinant 09/12/2019,07/06/2019 Family History Medical History Relation Comments No Known Problems Father No Known Problems Mother Breast cancer Sister 1 Relation Status Comments Father Mother Sister 1 Alive Sister 2 Alive Sister 3 Alive Social History Tobacco Use Types Packs/Day Years Used Date Smoking Tobacco: Never Smokeless Tobacco: Never Tobacco Cessation:Counseling Given: Not Answered Alcohol Use Standard Drinks/Week Comments Yes 6 (1 standard drink = 0.6 oz pure alcohol) 1-2 drinks, 2-3 x week, wine or beer in summer Education Answer Date Recorded Are you interested in more education? Not on layla e 10/23/2022 Are you concerned about learning? Not on file 10/23/2022 No 10/23/2022 No 10/23/2022 Digital Access Answer Date Recorded No 11/23/2022 No 11/23/2022 Reliable internet access at home? Not on file 11/23/2022 Device with a working camera? Not on file Intimate Partner Violence Answer Date R ecorded Denied Basic Needs Not on file 12/25/2024 In the past 12 months have y ou been in a relationship with a person who hurts, threatens, or tries to control you? No 12/25/2024 Worried food would run out Not on file 12/25 In the past 12 months have y ou been in a relationship with a person who hurts, threatens, or tries to control you? No 12/25/2024 Comments No Sex and Gender Information Value Date Recorded Sex Assigned at Not on file Legal Sex Female 10:07 PM EDT Gender Identity Not on file Sexual Orientation Not on file Last Filed Vital Signs Vital Sign Reading Time Taken Comments Blood Pressure 136/78 12/25/2024 3:56 PM EDT Pulse 84 12/25/2024 3:22 PM EDT Temperature 36.9 C (98.5 F) 12/25/2024 3:22 PM EDT Respiratory Rate 12 06/30/2024 4:17 PM EST Oxygen Saturation 99% 12/25/2024 3:22 PM EDT Inhaled Oxygen Concentration - - Weight 56.3 kg (124 lb 3.2 oz) 12/25/2024 3:22 P M EDT Height 159.1 cm (5' 2.64 ) 12/25/2024 3:22 PM ED T Body Mass Index 22.26 12/25/2024 3:22 PM EDT Plan of Treatment Upcoming Encounters Date Type Department Care Team (Late st Contact Info) Description 06/11/2025 3:30 PM EST Office Visit [facility] [address] [place] [address] Greg Horton MD [address] [place] [address] [email or web address] 01/10/2026 2:40 PM EDT Office Visit [facility] [address] [place] [address] Gerardo Peralta PA-C [address] [place] [address] [email or web address] Health Maintenance Due Date Last Done Comments Adult Td,Tdap Booster 07/31/2024 07/31/2014, 005 INFLUENZA VACCINE (#1) 2025 , 03/29/2023, 03/11/2022, Additional history exists COVID-19 VACCINE ( season) 2025 03/09/2024, 03/29/2023, 10/28/2022, Additional history exists BLOOD PRESSURE 06/26/2025 12/25/2024 DEPRESSION SCREENING 12/25/2025 12/25/2024 LIPID PANEL 01/09/2030 01/09/2025, 11/26, 06/02/2022, Additional history exists PNEUMOCOCCAL VACCINES (50+ years) Completed 03/08/2015, 10/26/2011 ZOSTER VACCINES Completed 09/12/2019, 02/2020, 12/02/2011 HEPATITIS C SCREENING Completed 05/28/2020 OSTEOPOROSIS SCREENING INITIAL (ONE-TIME) Completed 12/04/2020, 08/02/2014 RSV VACCINE Completed 12/27/2023 SMOKING STATUS SCREENING (Once After 26 Yrs) Completed 12/25/2024 HEPATITIS A VACCINES Aged Out No long er eligible based on patient's age to complete this topic HIB VACCINES Aged Out No longer eligi ble based on patient's age to complete this topic MENINGOCOCCAL VACCINES (ACWY) Aged Out No longer eligible based on patient's age to complete this topic MENINGOCOCCAL VACCINES (B) Aged Out N o longer eligible based on patient's age to complete this topic Medical Devices Not on file Procedures Procedure Name Priority Date/Time Associated Diagnosis Comments COLONOSCOPY FOR RESULT ENTRY ONLY Routine 01/31/2025 11:09 AM EDT COLONOSCOPY FOR RESULT ENTRY ONLY Routine 01/31/2025 11:08 AM EDT URINALYSIS Routine 01/09/2025 9:32 AM EDT Benign essential hypertension CBC AND DIFFERENTIAL Routine 01/09/2025 9:18 AM EDT Benign essential hypertension Primary osteoarthritis involving multiple joints COMPREHENSIVE METABOLIC PANEL Routine 01/09/2025 9:18 AM EDT Benign essential hypertension Pure hypercholesterolemia Primary osteoarthritis involving multiple joints Impaired fasting glucose LIPID PANEL Routine 01/09/2025 9:18 AM EDT Pure hypercholesterolemia TSH WITH REFLEX Routine 01/09/2025 9:18 AM EDT Benign essential hypertension Pure hypercholesterolemia HEMOGLOBIN A1C Routine 01/09/2025 9:18 AM EDT Impaired fasting glucose 25-OH VITAMIN D Routine 01/09/2025 9:18 AM EDT Vitamin D deficiency, unspecified HC BLOOD OCCULT FECAL HGB DETER IA QUAL FECES 1-3 Routine 01/08/2025 8:00 AM EDT Colon cancer screening BD DXA SCREENING Routine 12/04/2020 10:19 AM EDT Post-menopausal Estrogen deficiency HEPATITIS C ANTIBODY, QUALITATIVE Routine 05/28/2020 9:47 AM EST Need for hepatitis C screening test from Last 3 Months or Most Recently Relevant to Health Maintenance Results * COLONOSCOPY FOR RESULT ENTRY ONLY (01/31/2025 11:09 AM EDT) us Historical Provider HEALTH MAINTENANCE Final Result * COLONOSCOPY FOR RESULT ENTRY ONLY (01/31/2025 11:08 AM EDT) us Historical Provider HEALTH MAINTENANCE Final Result * Urinalysis (01/09/2025 9:32 AM EDT) COLOR Yellow Yellow [facility] CLARITY Clear [facility] GLUCOSE Negative Negative [facility] BILI Negative Negative [facility] KETONES Negative Negative [facility] SPECIFIC GRAVITY 1.015 1.005 - 1.030 [facility] BLOOD Negative Negative [facility] PH 7.0 5.0 - 8.0 [facility] Protein-UA Negative Negative [facility] NITRITE Negative Negative [facility] Leukocyte esterase, ur Negative Negative [facility] Urine (Urine) 01/09/2025 9:3 2 AM EDT 01/09/2025 9:35 AM EDT us Greg Horton MD URINE ORDERABLES Final Result [facility] [address] [place] [address] * (ABNORMAL) Comprehensive metabolic panel (01/09/2025 9:18 AM EDT) SODIUM 139 133 - 146 mmol/L [facility] POTASSIUM 3.6 3.3 - 5.1 mmol/L [facility] CHLORIDE 102 96 - 108 mmol/L [facility] CO2 27 21 - 35 mmol/L [facility] BUN 13 6 - 19 mg/dL [facility] CREATININE 0.60 0.5 - 1.5 mg/dL [facility] GLUCOSE 103(H) 70 - 99 mg/dL [facility] ALBUMIN 4.1 3.9 - 4.8 g/dL [facility] TOTAL PROTEIN 7.5 6.5 - 8.0 g/dL [facility] CALCIUM 9.2 8.4 - 10.3 mg/dL [facility] ALKALINE PHOSPHATASE 86 39 - 117 U/L [facility] TOTAL BILIRUBIN 0.6 0.0 - 1.2 mg/dL [facility] AST 22 0 - 37 U/L [facility] ALT 13 0 - 40 U/L [facility] GLOBULIN 3.4 1 - 4.8 g/dL [facility] EGFR 92 >59 mL/min/1.7 3m2 [facility] Comment:Estimated glomerular filtration rate calculated using the CKD-EPI refit equation. ANION GAP 14 10 - 20 mmol/L [facility] Blood 01/09/2025 9:18 AM EDT 01/09/2025 9:22 AM EDT us Greg Horton MD LAB BLOOD ORDERABLES Final Re sult Performing Organization Address City/[facility]/ZIP Co de Phone Number [address] [address] * TSH with reflex (01/09/2025 9:18 AM EDT) TSH 1.82 0.27 - 4.20 uIU/mL [facility] Blood 01/09/2025 9:18 AM EDT 01/09/2025 9:22 AM EDT us Greg Horton MD LAB BLOOD ORDERABLES Final Re sult Performing Organization Address [facility]/ZIP Co de Phone Number [address] [address] * 25-OH vitamin D (01/09/2025 9:18 AM EDT) 25 OH VIT D (TOTAL) 36 30 - 60 ng/mL [facility] Blood 01/09/2025 9:18 AM EDT 01/09/2025 9:22 AM EDT us Greg Horton MD LAB BLOOD ORDERABLES Final Re sult Performing Organization Address City/[facility]/ZIP Co de Phone Number [address] [address] * CBC and differential (01/09/2025 9:18 AM EDT) WBC 6.71 4.00 - 11.00 K/uL [facility] RBC 4.88 4.00 - 5.20 M/uL [facility] HGB 14.8 12.0 - 16.0 g/dL [facility] HCT 45.7 36.0 - 46.0 % [facility] PLT 285 150 - 450 K/uL [facility] MCV 93.6 80.0 - 100.0 fL [facility] MCH 30.3 27.0 - 31.0 pg [facility] MCHC 32.4 32.0 - 36.0 g/dL [facility] RDW 13.9 11.5 - 14.5 % [facility] MPV 10.6 8.4 - 12.0 fL [facility] NRBC 0.00 0.00 /100 WBCs [facility] ABSOLUTE NRBC 0.00 0.00 K/uL [facility] DIFF METHOD Auto [facility] NEUTS 57.8 48.0 - 76.0 % [facility] LYMPHS 30.8 18.0 - 41.0 % [facility] MONOS 8.8 4.0 - 11.0 % [facility] EOS 1.9 0.0 - 5.0 % [facility] BASOS 0.4 0.0 - 1.5 % [facility] Granulocytes, immature (%) 0.3 0.0 - 0.9 % [facility] ABSOLUTE NEUTS 3.87 1.92 - 7.60 K/uL [facility] ABSOLUTE LYMPHS 2.07 0.72 - 4.10 K/uL [facility] ABSOLUTE MONOS 0.59 0.16 - 1.10 K/uL [facility] ABSOLUTE EOS 0.13 0.00 - 0.50 K/uL [facility] ABSOLUTE BASOS 0.03 0.00 - 0.15 K/uL [facility] Granulocytes, immature 0.02 0.00 - 0.09 K/uL [facility] Blood 01/09/2025 9:18 AM EDT 01/09/2025 9:22 AM EDT us Greg Horton MD LAB BLOOD ORDERABLES Final Re sult [facility] [address] [place] [address] * Hemoglobin A1c (01/09/2025 9:18 AM EDT) HEMOGLOBIN A1C 5.7 4.3 - 5.8 % [facility] Blood 01/09/2025 9:18 AM EDT 01/09/2025 9:22 AM EDT Greg Horton MD LAB BLOOD ORDERABLES Final Re sult Performing Organization Address [facility] Co de Phone Number [address] [address] * (ABNORMAL) Lipid panel (01/09/2025 9:18 AM EDT) HDL 81 mg/dL [facility] Comment: Interpretation <40 mg/dL: Low HDL cholesterol (major risk factor for CHD) Greater than or equal to 60 mg/dL: High HDL cholesterol ( negative risk factor for CHD) HDL - cholesterol is affected by a number of factors, e.g. smoking, excerise, hormones, sex and age. CHOLESTEROL 215 0 - 240 mg/dL [facility] TRIGLYCERIDES 99 30 - 160 mg/dL [facility] LDL 114 50 - 129 mg/dL [facility] Comment: LDL levels in terms of risk for coronary heart disease: <100 mg/dL: Optimal 100-129 mg/dL: Near or above optimal 130-159 mg/dL: Borderline high 160-189 mg/dL: High >190 mg/dL: Very High CARDIAC RISK RATIO 2.7(L) 3.3 - 4.4 C [facility] Blood 01/09/2025 9:18 AM EDT 01/09/2025 9:22 AM EDT Greg Horton MD LAB BLOOD ORDERABLES Final Re sult Performing Organization Address [facility] Co de Phone Number [address] [address] * (ABNORMAL) Fecal immunochemical test x1 (FIT) (01/08/2025 8:00 AM EDT) Immuno Fecal Occult Positive(A ) Negative [facility] Stool (Stool) 01/08/2025 8:0 0 AM EDT 01/09/2025 10:02 AM EDT Moni Silveira PA-C BODY FLUIDS AND STOOLS ORDER ANNALISA Final Result Performing Organization Address City/[facility]/ZIP Co de Phone Number [address] [address] * DXA Screening (12/04/2020 10:19 AM EDT) Anatomical Region Laterality Modality Bone Density Bone Density us Greg Horton MD IMG BD BONE DENSITY DEXA Nalini l Result * Hepatitis C antibody, qualitative (05/28/2020 9:47 AM EST) HCV NON-REACTIV E NON-REACTI VE [facility] Blood 05/28/2020 9:47 AM EST 05/28/2020 9:52 AM EST us Greg Horton MD LAB BLOOD ORDERABLES Final Re sult Performing Organization Address City/[facility]/ZIP Co de Phone Number [address] [address] from Last 3 Months or Most Recently Relevant to Health Maintenance Insurance [employer] RE[employer]ACEMENT [employer] HMO REPLACEMENT [address] [place] [address] [address] [address] MEDICARE HMO REPLACEMENT [employer] [place] [place] Care Teams Corrections Counselor Relationship Specialty Start Date End Date Greg Horton MD [address] [place] [address] [email or web address] PCP - General Internal Medicine 04/27/17 Additional Source Comments The information contained in this document represents components of the legal health record. It is not the complete legal health record.[facility]
--- OUTSIDE RECORDS SUMMARY | 2025-03-01 12:31 | XMS_ITS | Encounter Summary ---
Author Organization [facility] Address [address] [place] [address] Phone Care Team Providers Care Cross Cut Sawyer Name Role Phone Greg Horton MD Unavailable [phone] Desiree Cruz MD Unavailable [phone] Verito Hialrio MD Unavailable [phone] Christy Collins NP Unavailable [phone] Greg Horton MD Primary Care Provider [phone] Encounter Details Date Type Department Care Team (Latest Contact Info) Description 03/17/2018 Transcribe Orders [facility] [address] [place], [place] [id number] Greg Horton MD [address] [place], [place] [phone] [email or web address] Essential hypertension, malignant (Primary Dx); Pure hypercholesterolemia ; Avitaminosis D Social History Tobacco Use Types Packs/Day Years Used Date Smoking Tobacco: Never Smokeless Tobacco: Never Alcohol Use Standard Drinks/Week Comments Yes 7 (1 standard drink = 0.6 oz pur e alcohol) Comments Unknown Sex and Gender Information Value Date Recorded Sex Assigned at Not on file Legal Sex Female 10:07 PM EDT Gender Identity Not on file Sexual Orientation Not on file documented as of this encounter Plan of Treatment Upcoming Encounters Date Type Department Care Team (Late st Contact Info) Description 06/11/2025 3:30 PM EST Office Visit [facility] Internal Medicine [address] [place] [address] Greg Horton MD [address] [place], [place] [email or web address] 01/10/2026 2:40 PM EDT Office Visit [facility] Internal Medicine [address] [place], [place] [phone] Gerardo Peralta PA-C [address] [place], [place] [email or web address] documented as of this encounter Results * (ABNORMAL) Urinalysis (03/17/2018 9:54 AM EDT) COLOR Yellow Yellow [facility] CLARITY HAZY [facility] GLUCOSE Negative Negative [facility] BILI Negative Negative [facility] KETONES Negative Negative [facility] SPECIFIC GRAVITY 1.010 1.005 - 1.030 [facility] BLOOD Negative Negative [facility] PH 7.0 5.0 - 8.0 [facility] Protein-UA Negative Negative [facility] NITRITE Negative Negative [facility] Leukocyte esterase, ur 3+(A) Negative [facility] Urine (Urine) 03/17/2018 9:5 4 AM EDT 03/17/2018 10:16 AM EDT us Greg Horton MD URINE ORDERABLES Final Result [facility] [address] [place], [place] [id number] * (ABNORMAL) 25-OH vitamin D (03/17/2018 9:37 AM EDT) 25 OH VIT D (TOTAL) 28(L) 30 - 60 ng/mL [facility] Blood 03/17/2018 9:37 AM EDT 03/17/2018 9:44 AM EDT us Greg Horton MD LAB BLOOD ORDERABLES Final Re sult [address] [address] * TSH (03/17/2018 9:37 AM EDT) TSH 1.92 0.27 - 4.20 uIU/mL [facility] Blood 03/17/2018 9:37 AM EDT 03/17/2018 9:44 AM EDT us Greg Horton MD LAB BLOOD ORDERABLES Final Re sult Performing Organization Address [facility] Co de Phone Number [address] [address] * (ABNORMAL) Comprehensive metabolic panel (03/17/2018 9:37 AM EDT) Pathologist [facility] SODIUM 140 133 - 146 mmol/L [facility] POTASSIUM 4.0 3.3 - 5.1 mmol/L [facility] CHLORIDE 101 96 - 108 mmol/L [facility] CO2 27 21 - 35 mmol/L [facility] BUN 15 6 - 19 mg/dL [facility] CREATININE 0.60 0.5 - 1.5 mg/dL [facility] GLUCOSE 104(H) 70 - 99 mg/dL [facility] ALBUMIN 3.7(L) 3.9 - 4.8 g/dL [facility] TOTAL PROTEIN 7.3 6.5 - 8.0 g/dL [facility] CALCIUM 9.2 8.4 - 10.3 mg/dL [facility] ALKALINE PHOSPHATASE 82 39 - 117 U/L [facility] TOTAL BILIRUBIN 0.4 0.0 - 1.2 mg/dL [facility] AST 20 0 - 37 U/L [facility] ALT 11 0 - 40 U/L [facility] GLOBULIN 3.6 1 - 4.8 g/dL [facility] EGFR 92 >59 mL/min/1.7 3m2 [facility] Comment:If patient is black, multiply result by 1.159. Estimated glomerular filtration rate calculated using the CKD-EPI equation. ANION GAP 16 10 - 20 mmol/L [facility] Blood 03/17/2018 9:37 AM EDT 03/17/2018 9:44 AM EDT us Greg Horton MD LAB BLOOD ORDERABLES Final Re sult Performing Organization Address City/[facility]/ZIP Co de Phone Number [address] [address] * CBC (03/17/2018 9:37 AM EDT) WBC 5.53 3.40 - 11.20 K/uL [facility] RBC 4.63 3.80 - 4.80 M/uL [facility] HGB 14.0 12.0 - 15.0 g/dL [facility] HCT 42.5 36.0 - 46.0 % [facility] PLT 288 130 - 400 K/uL [facility] MCV 91.8 79.0 - 98.0 fL [facility] MCH 30.2 27.0 - 34.8 pg [facility] MCHC 32.9 31.5 - 36.0 g/dL [facility] RDW 13.0 10.8 - 14.6 % [facility] MPV 10.3 9.4 - 12.4 [facility] NRBC 0.00 /100 WBCs [facility] ABSOLUTE NRBC 0.00 K/uL [facility] Blood 03/17/2018 9:37 AM EDT 03/17/2018 9:44 AM EDT us Greg Horton MD LAB BLOOD ORDERABLES Final Re sult Performing Organization Address City/[facility]/ZIP Co de Phone Number [address] [address] * (ABNORMAL) Lipid panel (03/17/2018 9:37 AM EDT) HDL 59 mg/dL [facility] Comment: Interpretation: Risk Level Females Decreased >55mg/dL Average 50-55 mg/dL Increased <50 mg/dL CHOLESTEROL 190 0 - 240 mg/dL [facility] TRIGLYCERIDES 128 30 - 160 mg/dL [facility] LDL 105 50 - 129 mg/dL [facility] Comment: LDL levels in terms of risk for coronary heart disease: <100 mg/dL: Optimal 100-129 mg/dL: Near or above optimal 130-159 mg/dL: Borderline high 160-189 mg/dL: High >190 mg/dL: Very High CARDIAC RISK RATIO 3.2(L) 3.3 - 4.4 C [facility] Blood 03/17/2018 9:37 AM EDT 03/17/2018 9:44 AM EDT us Greg Horton MD LAB BLOOD ORDERABLES Final Re sult [facility] [address] [place] [address] documented in this encounter Visit Diagnoses Diagnosis Essential hypertension, malignant- Primary Pure hypercholesterolemia Avitaminosis D Unspecified vitamin D deficiency documented in this encounter Additional Health Concerns Infection Onset Date Last Indicated Resolved Time CoV-Exposed Comment:Recent close contact documented in the COVID-19 PCR/PRO order 04/17/2021 04/17/2021 05/02/2021 1:21 AM E DT Assessment Noted Time PHQ-2 Depression Total Score: 0 10/15/19 18 1:21 PM EDT documented as of this encounter Care Teams Cross Cut Sawyer Relationship Specialty Start Date End Date Greg Horton MD [address] [place] [address] [email or web address] PCP - General Internal Medicine 04/27/17 Greg Horton MD [address] [place] [address] [email or web address] Historical LMR Provider 04/18/17 12/10/22 Desiree Cruz MD [address] [place] [address] [facility] [place] [address] Historical LMR Provider 04/12/17 Verito Hilario MD [address] [place] [address] Historical LMR Provider 04/18/17 2 Christy Collins NP [address] [place] [address] [email or web address] Historical LMR Provider 04/18/17 12/10/22 documented as of this encounter Additional Source Comments The information contained in this document represents components of the legal health record. It is not the complete legal health record.[facility]
--- OUTSIDE RECORDS SUMMARY | 2025-03-01 12:31 | XMS_ITS | Patient Health Record ---
Author Organization [facility] Address [address] [place] [address] Care Team Providers Care Customer Development Representative Name Role Phone Greg Horton MD Primary Care Provider Simon Olivas Jr Unavailable Allergies Allergen (clinical drug ingredient) Drug/Non Drug Allergy documented on EMR Reaction Allergy Type Onset Date Status Motrin Unknown Drug Allergy Active Aleve Unknown Drug Allergy Active ibuprofen Advil Unknown Drug Allergy Active Reason For Referral No Information Medications Medication SIG (Take, Route, Frequency, Duration) Notes Start Date End Date Status Colyte with Flavor Packs 240 GM As directed Orally Over the specified time. for 1 day(s) 12/25/2015 Active Atenolol 50 MG 1 tablet Orally Once a day Active Vitamin D Active Problems Problem Type SNOMED Code ICD Code Onset Dates Problem Status W/U Status Risk Notes Problem 254945516 Colon cancer screening (Z12.11) Active confirmed Problem 26237965 Encounter for other preprocedural examination (Z01.818) Active confirmed Plan Of Treatment Future Test Test Name Order Date COLONOSCOPY 12/25/2015 Insurance Providers Payer Name Payer Address Payer Phone Subscriber Number Group Number Insured Name Patient Relationship to Insured Coverage Start Date Coverage End Date [facility] [address] [place] [phone] [id number] TONA IRENE Self - patient is the insured Medical (General) History Medical History History ICD Code hypertension Denies AR,DM,CVA,Lung disease,renal dise ase Surgical History Surgery Date(Month/Year) wrist surgery
--- OUTSIDE RECORDS SUMMARY | 2025-03-01 12:31 | XMS_ITS | Patient Health Record ---
[facility] isael [place] Address [address] [place] [address] Care Team Providers Care Global Chief Creative Officer Name Role Phone Greg Horton MD Primary Care Provider Viktoria Lozano Unavailable [phone] Allergies Allergen (clinical drug ingredient) Drug/Non Drug [...] 25 MG 1 tablet Orally Once a day; Duration: 30 day(s) Not-Taking amLODIPine Besylate Active Social [...] Status Risk Notes Problem Acquired hallux valgus (74386107) Hallux valgus (acquired), left foot (M20.12) Active confirmed Problem Localized, primary osteoarthritis of the ankle and/or foot (482215696) Primary osteoarthriti s, left ankle and foot (M19.072) Active confirmed Problem Acquired hallux valgus (42150587) Hallux valgus (acquired), right foot (M20.11) Active confirmed Problem Acquired hammer toe of left foot (6289331750339652) Other hammer toe(s) (acquired), left foot (M20.42) Active confirmed Problem Mononeuropathy of lower limb (957490739) 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) Active confirmed Problem Accessory navicular bone of foot (700556930) 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) Active confirmed Problem Localized, primary osteoarthritis of the ankle and/or foot (827276418) Arthritis of joint of lesser toe, left (M19.072) Active confirmed Vital Signs Height 5 ft 3 in in 04/28/2024 Weight 125 lbs 04/28/2024 BMI 22.14 kg/m2 04/28/2024 Encounters Encounter Location Date Provider Diagnosis [facility] [address] 04/28/2024 Viktoria Galicia Pain in left toe(s) M79.675 ; Other hammer toe(s) (acquired), left foot M20.42 ; Arthritis of joint of lesser toe, left M19.072 ; Neuritis of left foot G57.92 and Accessory navicular bone of right foot Q74.[address] [facility] [address] 03/01/2024 Viktoria Galicia [address] [address] 04/28/2024 Viktoria Galicia Assessments Encounter Date Diagnosis [...] Medicare Advantage [address] [facility] [place] [address] [id number] Dora Arambula Self - patient is the insured Medical (General) History Medical History History ICD Code Arthritis High blood pressure Psoriasis/eczema Chicken pox Surgical History Surgery Date(Month/Year)
--- OUTSIDE RECORDS SUMMARY | 2025-03-01 12:32 | XMS_ITS | Encounter Summary ---
Author Organization [facility] Address [address] [place] [address] Phone Care Team Providers Care Jitney Driver Name Role Phone Greg Horton MD Primary Care Provider [phone] Encounter Details Date Type Department Care Team (Late st Contact Info) Description 01/31/2025 Orders Only [facility] Internal Medicine [address] [place] [address] Provider, MD Sophie [address] [place], [place] [id number] Social History Tobacco Use Types Packs/Day Years Used Date Smoking Tobacco: Never Smokeless Tobacco: Never Alcohol Use Standard Drinks/Week Comments Yes 6 [...] Description 06/11/2025 3:30 PM EST Office Visit [facility] Internal Medicine [address] [place] [address] Greg Horton MD [address] [place] [address] 01/10/2026 2:40 PM EDT Office Visit [facility] Internal Medicine [address] [place] [address] Gerardo Peralta PA-C [address] [place] [address] documented as of this encounter Procedures Procedure Name Priority Date/Time Associated Diagnosis Comments HM COLONOSCOPY FOR RESULT ENTRY ONLY Routine 01/31/2025 11:09 AM EDT HM COLONOSCOPY FOR RESULT ENTRY ONLY Routine 01/31/2025 11:08 AM EDT documented in this encounter Results * HM COLONOSCOPY FOR RESULT ENTRY ONLY (01/31/2025 11:09 AM EDT) us Historical Provider HEALTH MAINTENANCE Final Result * HM COLONOSCOPY FOR RESULT ENTRY ONLY (01/31/2025 11:08 AM EDT) us Historical Provider HEALTH MAINTENANCE Final Result documented in this encounter Visit Diagnoses Not on filedocumented in this encounter Additional Health Concerns Assessment Noted Time PHQ-2 Depression Total Score: 0 12/26/19 25 3:03 PM EDT documented as of this encounter Care Teams Jitney Driver Relationship Specialty Start Date End Date Greg Horton MD [address] [place] [address] [email or web address] PCP - General Internal Medicine 04/27/17 documented as of this encounter Additional Source Comments The information contained in this document represents components of the legal health record. It is not the complete legal health record.[facility]
== END 2025-03-01 10:56 | disposition home or self-care (01) ==
LOC: HO.MAMMO 10:55
PROVIDERS: PCP Internal Medicine; Visit Provider Internal Medicine
DX: N64.89 Other specified disorders of breast (principal)
CPT/HCPCS: 77062; 77066

== ENCOUNTER → 2025-03-01 11:00 | Outpatient (BNV) | payer MEDICARE, SELFPAY | PROVIDERS: PCP Internal Medicine; Visit Provider Internal Medicine | DX: R92.8 Other abnormal and inconclusive findings on diagnostic imaging of breast (principal) | CPT/HCPCS: 77066; G0279 ==

== ENCOUNTER 2025-06-27 09:44 | Outpatient (AMB) | payer MEDICARE, SELFPAY ==
--- NOTE | 2025-06-27 09:53 | MHC.OFFVIS ---
Vital Signs 06/27/25 09:55 Height 5 ft 3 in Weight 122 lb BMI 21.6 BP 167/77 H Blood Pressure Location Lt brachial Position Sitting Respiration 16 Pulse 93 Pulse Source Pulse Oximeter Pulse Oximetry (%) 99 Oxygen Delivery Method Room Air Intake Visit Reasons: PIRIFORMIS SYNDROME Security Site Supervisor Required: No Allergies No Known Allergies Allergy (Verified 06/27/25 09:56) Medication List - Last Reconciled 06/27/25 by Charo Lua LPN amlodipine 5 mg PO DAILY HPI HPI PIRIFORMIS SYNDROME: Details: History of Present Illness The patient is a 80 year old female presenting for evaluation of right buttock pain. She reports a four-month history of piriformis syndrome symptoms, with pain localized to her right buttock that radiates down the leg. The pain is described as sore and worsens as the day progresses, becoming very sore by 4:00 PM and reaching a severity of 7-8/10 at night, with some improvement by morning. For the past two months, she has been in physical therapy, which did not help initially but has started to provide some relief this past week. She was referred by her primary care physician, Dr. Greg Horton, for further pain management, possibly including a cortisone injection. For pain, she occasionally takes aspirin or Tylenol but no other medications. The patient also noted she has been constipated since the onset of this pain and inquired if it could be related. Pain Description - Onset and Timing: The pain began four months ago and worsens throughout the day, particularly after 4:00 PM. - Quality: The pain is described as sore. - Location and Radiation: Pain is located in the right buttock and radiates all the way down the leg. - Severity: The pain reaches a severity of 7-8 out of 10 at night. - Relieving Factors: Pain is better in the morning, and physical therapy has recently started to provide some relief. - Interference with Function: The patient is planning a trip to [place] in October and is hopeful she will be able to walk comfortably by then. Physical Exam - Musculoskeletal: Tenderness to palpation over the right buttock is noted. Pain Management: - Analgesia: The patient occasionally uses aspirin or Tylenol for pain. - Current pain level: Pain is rated as 7-8 out of 10 at night. - Activities of Daily Living: The patient has an upcoming trip to [place] in October and hopes her pain will improve to allow for walking during her travels. - Aberrant Drug-Related Behaviors: None noted. [facility] Medical History (Updated 06/27/25 @ 09:53 by Charo Lua LPN) Piriformis syndrome Lesion of sciatic nerve, right lower limb Hypertension Physical Exam Vital Signs: Last Vital Signs Pulse 93 06/27/25 09:55 Resp 16 06/27/25 09:55 BP 167/77 H 06/27/25 09:55 Pulse Ox 99 06/27/25 09:55 Oxygen Delivery Method Room Air 06/27/25 09:55 BMI result Body Mass Index 21.6 Assessment & Plan Assessment & Plan (1) Piriformis syndrome: Code(s): G57.00 - Lesion of sciatic nerve, unspecified lower limb Category: Medical Plan Plan Patient was informed and verbally consented to the use of an ambient scribe for clinic note documentation during this visit. 1. Piriformis Syndrome, Right Side - The patient will be scheduled for a right piriformis injection under image guidance. - The injection is anticipated to be scheduled in approximately 3 to 4 weeks. - The purpose of the injection is to reduce pain to allow for more effective participation in physical therapy. - The patient will continue with her physical therapy and home exercise program, which is considered the primary treatment. 2. Constipation - The patient was advised that her constipation is likely unrelated to her buttock pain. Discussion Notes I discussed with the patient that the primary treatment for her condition is the physical therapy she is already doing. I recommended a right piriformis injection under fluoroscopic guidance to help reduce her pain, which would enable her to better continue with her exercises. I informed her that the procedure could not be done today and would need to be scheduled in approximately three to four weeks. I advised that our office would call her with a date and time for the procedure, which will be performed in the [facility]'s procedure area, and we will provide directions at that time. We discussed her travel plans for October, and she is hopeful this intervention will improve her mobility. Regarding her question about constipation, I reassured her that it is likely unrelated to her current pain syndrome. Patient Instructions - Continue with your physical therapy and home exercise program, as this is the main treatment for your condition. - We will schedule a cortisone shot for your right buttock to help reduce your pain. - The shot is not available today but will be scheduled for a future date, likely in 3 to 4 weeks. - Our office will call you with the appointment date, time, and directions to the procedure area in the main hospital. Coding Level of Care Code New Pt Level 4 (19555) Diagnoses Piriformis syndrome G57.00
[2025-06-27 09:55] VITALS: BP 167/77; PULSE 93; RESP 16; O2SAT 99; BMI 21.6
--- OUTSIDE RECORDS SUMMARY | 2025-06-27 10:20 | XMS_ITS | Patient Health Record ---
Author Organization [facility] isael [place] Address [address] [place] [address] Care Team Providers Care Naphthol Soaping Machine Operator Name Role Phone Greg Horton MD Primary Care Provider Viktoria Lozano Unavailable [phone] Allergies Allergen (clinical drug ingredient) Drug/Non Drug [...] Status Risk Notes Problem Acquired hallux valgus (83959784) Hallux valgus (acquired), left foot (M20.12) Active confirmed Problem Localized, primary osteoarthritis of the ankle and/or foot (072185610) Primary osteoarthriti s, left ankle and foot (M19.072) Active confirmed Problem Acquired hallux valgus (96412148) Hallux valgus (acquired), right foot (M20.11) Active confirmed Problem Acquired hammer toe of left foot (9321080562635009) Other hammer toe(s) (acquired), left foot (M20.42) Active confirmed Problem Mononeuropathy of lower limb (282035118) 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) Active confirmed Problem Accessory navicular bone of foot (520564794) 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
--- OUTSIDE RECORDS SUMMARY | 2025-06-27 10:21 | XMS_ITS | Patient Health Record ---
Author Organization [facility] Address [address] [place] [address] Care Team Providers Care Data Steward Name Role Phone Greg Horton MD Primary Care Provider Simon Olivas Jr Unavailable [phone] Allergies Allergen (clinical drug ingredient) Drug/Non Drug Allergy documented on EMR Reaction Allergy Type Onset Date Status ibuprofen Advil Unknown Drug Allergy Active Aleve Unknown Drug Allergy Active Motrin Unknown Drug Allergy Active Reason For Referral No Information Medications Medication SIG (Take, Route, Frequency, Duration) Notes Start Date End Date Status Colyte with Flavor Packs 240 GM Solution Reconstituted As directed Orally Over the specified time.; Duration: 1 day(s) 12/25/2015 Active Atenolol 50 MG Tablet 1 tablet Orally On ce a day Active Vitamin D Active Social History Social History Additional Details Category Social Info Options Details Miscellaneous: Marital status: Occupation: retired Problems Problem Type SNOMED Code ICD Code Onset Dates Problem Status W/U Status Risk Notes Problem Information temporarily unavailable Colon cancer screening (Z12.11) Active confirmed Problem Information temporarily unavailable Encounter for other preprocedural examination (Z01.818) Active confirmed Plan Of Treatment Future Test Test Name Order Date COLONOSCOPY 12/25/2015 Insurance Providers Payer Name Payer Address Payer Phone Subscriber Number Group Number Insured Name Patient Relationship to Insured Coverage Start Date Coverage End Date [facility] [address] [facility] [phone] [id number] TONA IRENE Self - patient is the insured Medical (General) History Medical History History ICD Code hypertension Denies [place],DM,CVA,Lung disease,renal dise ase Surgical History Surgery Date(Month/Year) wrist surgery
--- OUTSIDE RECORDS SUMMARY | 2025-06-27 10:21 | XMS_ITS | Clinical Summary ---
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 Name Role Phone Greg Horton MD Primary Care Provider [phone] Allergies Active Allergy Reactions Criticality Noted Date Comments Ibuprofen GI Upset Medium 06/11/2025 Medications calcium carbonate-vitami n D3 1,500 mg [...] Encounters Date Type Department Care Team Description 06/11/2025 3:30 PM EST Office Visit [facility] [address] [facility] [place] [address] Greg Horton MD Primary hypertension (Primary Dx); Piriformis syndrome of right side 05/08/2025 Telephone [facility] [address] [facility] [place] [address] Greg Horton MD Cough 04/16/2025 Telephone [facility] [address] [facility] [place] [address] Greg Horton MD 04/04/2025 9:00 AM EDT Office Visit [facility] [address] [facility] [place] [address] Greg Horton MD Sciatica of right side (Primary Dx); Right buttock pain; Benign essential hypertension; Primary insomnia 04/03/2025 Documentation [facility] [address] [facility] [place] [address] Greg Horton MD 04/02/2025 Telephone [facility] [address] [place], [place] [phone] Greg Horton MD Triage (Red- diffciulty walking,back pain) from Last 3 Months Immunizations Immunization Administration Dates Next Due COVID-19 (Pre-04/19) Pfizer Vaccine, mRNA, PF 10/05/2020,09/12/2020 [id number] FORMULATION 06/28/2009 INFLUENZA, SPLIT VIRUS, TRIV ALENT W/ PRESERVATIVE IM 03/16/2014,03/18/2012 Influenza High-Dose Quadriva lent Preservative Free IM 03/29/2023,03/11/2022,03/17/2021 Influenza High-Dose Trivalen t Preservative Free IM 03/28/2025,03/09/2024,04/05/2019,04/11,03/13/2016,04/16/2015,03/20/2013 Influenza Quadrivalent Adjuv anted Preservative Free IM [...] Sign Reading Time Taken Comments Blood Pressure 150/60 06/11/2025 4:20 PM EST Pulse 82 06/11/2025 3:20 PM EST Temperature 36.7 C (98 F) 06/11/2025 3:20 PM EST Respiratory Rate 12 06/30/2024 4:17 PM EST Oxygen Saturation 97% 06/11/2025 3:20 PM EST Inhaled Oxygen Concentration - - Weight 56.1 kg (123 lb 9.6 oz) 06/11/2025 3:20 P M EST Height 159.7 cm (5' 2.87 ) 06/11/2025 3:20 PM ES T Body Mass Index 21.98 06/11/2025 3:20 PM EST Plan of Treatment Upcoming Encounters Date Type Department Care Team (Late st Contact Info) Description 08/10/2025 11:30 AM EST Office Visit [address] [phone] Greg Horton MD [address] [place] [address] 09/07/2025 2:00 PM EDT Office Visit [address] [address] Greg Horton MD [address] [place] [phone] 01/10/2026 2:40 PM EDT Office Visit [address] [address] Gerardo Peralta PA-C [address] [place] [phone] Health Maintenance Due Date Last Done Comments Adult Td,Tdap Booster 07/31/2024 07/31/2014, 005 COVID-19 VACCINE ( season) 2025 03/28/2025, 03/09/2024, 03/29/2023, Additional history exists BLOOD PRESSURE 12/10/2025 06/11/2025 DEPRESSION SCREENING 12/25/2025 12/25/2024 LIPID PANEL 01/09/2030 01/09/2025, 11/26, 06/02/2022, Additional history exists PNEUMOCOCCAL VACCINES (50+ years) Completed 03/08/2015, 10/26/2011 ZOSTER VACCINES Completed 09/12/2019, 02/2020, 12/02/2011 HEPATITIS C SCREENING Completed 05/28/2020 OSTEOPOROSIS SCREENING INITIAL (ONE-TIME) Completed 12/04/2020, 08/02/2014 RSV VACCINE Completed 12/27/2023 INFLUENZA VACCINE Completed 03/28/2025, , 03/29/2023, Additional history exists SMOKING STATUS SCREENING (Once After 26 Yrs) Completed 06/11/2025 HEPATITIS A VACCINES Aged Out No long [...] Procedure Name Priority Date/Time Associated Diagnosis Comments BI MAMMOGRAM DIAGNOSTIC (BILATERAL) Routine 04/16/2025 10:59 PM EDT Abnormal mammogram of both breasts LIPID PANEL Routine 01/09/2025 9:18 AM EDT Pure hypercholesterolemia BD DXA SCREENING Routine 12/04/2020 10:1 9 AM EDT Post-menopausal Estrogen deficiency HEPATITIS C ANTIBODY, QUALITATIVE Routine 05/28/2020 9:47 AM EST Need for hepatitis C screening test from Last 3 Months or Most Recently Relevant to Health Maintenance Results * (ABNORMAL) Lipid panel (01/09/2025 9:18 AM EDT) HDL 81 mg/dL [facility] Comment: Interpretation <40 mg/dL: Low HDL cholesterol (major risk factor for CHD) Greater than or equal to 60 mg/dL: High HDL cholesterol ( negative risk factor for CHD) HDL - cholesterol is affected by a number of factors, e.g. smoking, excerise, hormones, sex and age. CHOLESTEROL 215 0 - 240 mg/dL [facility] TRIGLYCERIDES 99 30 - 160 mg/dL [facility] LDL 114 50 - 129 mg/dL [facility] Comment: LDL levels in terms of risk for coronary heart disease: <100 mg/dL: Optimal 100-129 mg/dL: Near or above optimal 130-159 mg/dL: Borderline high 160-189 mg/dL: High >190 mg/dL: Very High CARDIAC RISK RATIO 2.7(L) 3.3 - 4.4 C [facility] Blood 01/09/2025 9:18 AM EDT 01/09/2025 9:22 AM EDT Greg Horton MD LAB BLOOD BKR ORDERABLES Nalini l Result Performing Organization Address [facility] de Phone Number [address] [address] * DXA Screening (12/04/2020 10:19 AM EDT) Anatomical Region Laterality Modality Bone Density Bone Density Greg Horton MD [facility] BD BONE DENSITY DEXA Nalini l Result * Hepatitis C antibody, qualitative (05/28/2020 9:47 AM EST) HCV NON-REACTIV E NON-REACTI VE [facility] Blood 05/28/2020 9:47 AM EST 05/28/2020 9:52 AM EST Greg Horton MD LAB BLOOD BKR ORDERABLES Nalini l Result Performing Organization Address [facility] Co de Phone Number [address] [phone] from Last 3 Months or Most Recently Relevant to Health Maintenance [place] [address] [place] [address] MEDICARE [place] [address] [place] [address] [address] [address] [place] [address] [address] [address] [place] [address] MEDICARE HMO REPLACEMENT [place] MED[place] HMO REPLACEMENT MEDICARE HMO REPLACEMENT [place] MEDICARE HMO REPLACEMENT [place] MEDIC[place] HMO REPLACEMENT Member Subscriber Plan / Payer (Ef fective 2021-Present) Name:Tysonaz Dora Relation to Subscriber:Self Name:Dora Arambula Payer ID:Not on file Type:Medicare Address: [place] [id number] Care Teams Major Appliance Assembly Supervisor Relationship Specialty Start Date End Date Greg Horton MD [address] [place] [id number] PCP - General Internal Medicine 04/27/17 Additional Source Comments The information contained in this document represents components of the legal health record. It is not the complete legal health record.[facility]
--- OUTSIDE RECORDS SUMMARY | 2025-06-27 10:21 | XMS_ITS | Encounter Summary ---
Author Organization [facility] Address [address] [place] [phone] Phone Care Team Providers Care Forester [employer] Name Role Phone Greg Horton MD Unavailable [phone] Desiree Cruz MD Unavailable Verito Hilario MD Unavailable [phone] Christy Collins NP Unavailable [phone] Greg Horton MD Primary Care Provider [phone] Encounter Details Date Type Department Care Team (Latest Contact Info) Description 03/17/2018 Transcribe Orders [facility] [address] [place], [place] [id number] Greg Horton MD [address] [place] [address] [email or web address] Essential hypertension, malignant (Primary Dx); Pure hypercholesterolemia [...] Description 08/10/2025 11:30 AM EST Office Visit [facility] [address] [place] [address] Greg Horton MD [address] [place] [address] 09/07/2025 2:00 PM EDT Office Visit [facility] [address] [place], [place] [phone] Greg Horton MD [address] [place] [address] 01/10/2026 2:40 PM EDT Office Visit [facility] [address] [place] [address] Gerardo Peralta PA-C [address], [place] [phone] documented as of this encounter Results * (ABNORMAL) Urinalysis (03/17/2018 9:54 AM EDT) COLOR Yellow Yellow [facility] CLARITY HAZY [facility] GLUCOSE Negative Negative [facility] BILI Negative Negative [facility] KETONES Negative Negative [facility] SPECIFIC GRAVITY 1.010 1.005 - 1.030 [facility] BLOOD Negative Negative [facility] PH 7.0 5.0 - 8.0 [facility] Protein-UA Negative Negative [facility] NITRITE Negative Negative [facility] Leukocyte esterase, ur 3+(A) Negative [facility] Urine (Urine) 03/17/2018 9:5 4 AM EDT 03/17/2018 10:16 AM EDT us Greg Horton MD LAB URINE ORDERABLES Final Re sult [address] [address] * (ABNORMAL) 25-OH vitamin D (03/17/2018 9:37 AM EDT) Pathologist [facility] 25 OH VIT D (TOTAL) 28(L) 30 - 60 ng/mL [facility] Blood 03/17/2018 9:37 AM EDT 03/17/2018 9:44 AM EDT us Greg Horton MD LAB BLOOD BKR ORDERABLES Nalini l Result [address] [address] * TSH (03/17/2018 9:37 AM EDT) [facility] TSH 1.92 0.27 - 4.20 uIU/mL [facility] Blood 03/17/2018 9:37 AM EDT 03/17/2018 9:44 AM EDT us Greg Horton MD LAB BLOOD BKR ORDERABLES Nalini l Result [address] [address] * (ABNORMAL) Comprehensive metabolic panel (03/17/2018 9:37 AM EDT) [facility] SODIUM 140 133 - 146 mmol/L [facility] POTASSIUM 4.0 3.3 - 5.1 mmol/L [facility] CHLORIDE 101 96 - 108 mmol/L [facility] CO2 27 21 - 35 mmol/L [facility] BUN 15 6 - 19 mg/dL [facility] CREATININE 0.60 0.5 - 1.5 mg/dL [facility] GLUCOSE 104(H) 70 - 99 mg/dL [facility] ALBUMIN 3.7(L) 3.9 - 4.8 g/dL [facility] TOTAL PROTEIN 7.3 6.5 - 8.0 g/dL [facility] CALCIUM 9.2 8.4 - 10.3 mg/dL [facility] ALKALINE PHOSPHATASE 82 39 - 117 U/L [facility] TOTAL BILIRUBIN 0.4 0.0 - 1.2 mg/dL [facility] AST 20 0 - 37 U/L [facility] ALT 11 0 - 40 U/L [facility] GLOBULIN 3.6 1 - 4.8 g/dL [facility] EGFR 92 >59 mL/min/1.7 3m2 [facility] Comment:If patient is black, multiply result by 1.159. Estimated glomerular filtration rate calculated using the CKD-EPI equation. ANION GAP 16 10 - 20 mmol/L [facility] Blood 03/17/2018 9:37 AM EDT 03/17/2018 9:44 AM EDT us Greg Horton MD LAB BLOOD BKR ORDERABLES Nalini l Result [address] [id number] * CBC (03/17/2018 9:37 AM EDT) WBC 5.53 3.40 - 11.20 K/uL [facility] RBC 4.63 3.80 - 4.80 M/uL [facility] HGB 14.0 12.0 - 15.0 g/dL [facility] HCT 42.5 36.0 - 46.0 % [facility] PLT 288 130 - 400 K/uL [facility] MCV 91.8 79.0 - 98.0 fL [facility] MCH 30.2 27.0 - 34.8 pg [facility] MCHC 32.9 31.5 - 36.0 g/dL [facility] RDW 13.0 10.8 - 14.6 % [facility] MPV 10.3 9.4 - 12.4 fl [facility] NRBC 0.00 /100 WBCs [facility] ABSOLUTE NRBC 0.00 K/uL [facility] Blood 03/17/2018 9:37 AM EDT 03/17/2018 9:44 AM EDT us Greg Horton MD LAB BLOOD BKR ORDERABLES Nalini l Result Performing Organization Address City/[facility]/ZIP Co de Phone Number [address] [address] * (ABNORMAL) Lipid panel (03/17/2018 9:37 AM EDT) HDL 59 mg/dL [facility] Comment: Interpretation: Risk Level Females Decreased >55mg/dL Average 50-55 mg/dL Increased <50 mg/dL CHOLESTEROL 190 0 - 240 mg/dL [facility] TRIGLYCERIDES 128 30 - 160 mg/dL [facility] LDL 105 50 - 129 mg/dL [facility] Comment: LDL levels in terms of risk for coronary heart disease: <100 mg/dL: Optimal 100-129 mg/dL: Near or above optimal 130-159 mg/dL: Borderline high 160-189 mg/dL: High >190 mg/dL: Very High CARDIAC RISK RATIO 3.2(L) 3.3 - 4.4 [facility] Blood 03/17/2018 9:37 AM EDT 03/17/2018 9:44 AM EDT us Greg Horton MD LAB BLOOD BKR ORDERABLES Nalini l Result Performing Organization Address [facility] Co de Phone Number [address] [address] documented in this encounter Visit Diagnoses Diagnosis [...] documented as of this encounter Care Teams [employer] Relationship Specialty Start Date End Date Greg Horton MD [address] [place] [phone] [email or web address] PCP - General Internal Medicine 04/27/17 Greg Horton MD [address] [place] [phone] Historical LMR Provider 04/18/17 12/10/22 Desiree Cruz MD [address] [place] [address] Orthopedics [facility] Sports Medicine, [place] [address] Historical LMR Provider 04/12/17 Verito Hilario MD [address] [place] [address] Historical LMR Provider 04/18/17 2 Christy Collins NP [address] [place] [address] Historical LMR Provider 04/18/17 12/10/22 documented as of this encounter Additional Source Comments The information contained in this document represents components of the legal health record. It is not the complete legal health record.[facility]
== END 2025-06-27 10:16 | disposition home or self-care (01) ==
LOC: HO.PMC 09:44
PROVIDERS: PCP Internal Medicine; Visit Provider Internal Medicine
DX: G57.00 Lesion of sciatic nerve, unspecified lower limb (principal)
CPT/HCPCS: 99204

== ENCOUNTER → 2025-06-27 09:44 | Outpatient (BNVA) | payer MEDICARE, SELFPAY | PROVIDERS: PCP Internal Medicine; Visit Provider Internal Medicine | DX: G57.01 Lesion of sciatic nerve, right lower limb (principal); K59.00 Constipation, unspecified | CPT/HCPCS: 99202 ==